=== PATIENT | male | born 1970 | race Caucasian/White ===

== ENCOUNTER 2017-11-09 11:02 | Inpatient (IN) | payer OTHER ==
--- NOTE | 2017-11-09 11:30 | PDOC ---
History of Present Illness - General Chief Complaint: Respiratory Stated Complaint: SOB Time Seen by Provider: 11/09/17 11:29 History Source: Patient Exam Limitations: No Limitations - History of Present Illness Initial Comments: 11/09/17 12:16 Chief complaint: Left rib pain Patient 46-year-old male who denies any medical issues, states he's a nonsmoker but stated he smoked a few days ago, who coughed on November 06 and since then has had left rib pain. Patient states that he's had chills, fever but did not take his temperature. Patient states that the pain is been constant. GENERAL/CONSTITUTIONAL: No fever, weakness. dizziness HEAD, EYES, EARS, NOSE AND THROAT: No change in vision. No ear pain or discharge. No sore throat. CARDIOVASCULAR: No chest pain RESPIRATORY: +shortness of breath or cough GASTROINTESTINAL: No pain, nausea, vomiting, diarrhea or constipation GENITOURINARY: No dysuria MUSCULOSKELETAL: No neck or back pain SKIN: No rash NEUROLOGIC: No headache, vertigo, loss of consciousness, or loss of sensation. GENERAL: The patient is awake, alert, and fully oriented, in no acute distress. HEAD: Normal with no signs of trauma. EYES: Pupils equal, round and reactive to light, sclera anicteric, conjunctiva clear. ENT: pharynx: no erythema, no exudate, uvula midline NECK: supple CHEST: Diminished with coughing and wheezing, left lower rib tenderness, rr ABD: soft, nontender EXTREMITIES: Normal range of motion, no edema. NEUROLOGICAL: Normal speech, normal gait. SKIN: Warm, Dry Past History - Past Medical History Allergies/Adverse Reactions: Allergies Allergy/AdvReac Type Severity Reaction Status Date / Time No Known Allergies Allergy Verified 11/09/17 11:09 Home Medications: Ambulatory Orders NK [No Known Home Medication] 11/09/17 COPD: No - Suicide/Smoking/Psychosocial Hx Smoking History: Current every day smoker Number of Cigarettes Smoked Daily: 3 Information on smoking cessation initiated: No Hx Alcohol Use: Yes (SOCIAL) Drug/Substance Use Hx: No Substance Use Type: None *Physical Exam - Vital Signs Last Vital Signs Temp Pulse Resp BP Pulse Ox 99.1 F 127 H 20 127/94 11/09/17 11:05 11/09/17 11:05 11/09/17 11:05 11/09/17 11:05 Heart Score/ECG Review - ECG Intrepretation Rhythm: Regular Rhythm Comment:: 11/09/17 14:24 sinus tachycardia at 121 ED Treatment Course - LABORATORY CBC & Chemistry Diagram: 11/09/17 11:50 11/09/17 11:50 - RADIOLOGY Chest X-Ray Result: Effusion (large left, ct pending) Medical Decision Making - Medical Decision Making 11/09/17 14:24 46-year-old male with cough, left rib pain, wheezing, found to have a large left pleural effusion, questionable fever, was found to be tachycardic, sepsis screening was sent. Patient was found to have a white count of 17,000, lactic of 1.1, slightly hypoxic although able to speak clearly and doesn't appear in acute distress. Patient started on Levaquin, CT chest ordered to further define what processes going on in the lung. Patient given fluids, flu swab sent. Patient will need admission, culture sent. *DC/Admit/Observation/Transfer Diagnosis at time of Disposition: Pleural effusion on left - Discharge Dispostion Condition at time of disposition: Fair Admit: Yes - Referrals - Patient Instructions - Post Discharge Activity
[2017-11-09] MEDS ORDERED: ALBUTEROL SO4 2.5/IPRATROPIUM 0.5 INH SOL 3 ML VIAL.NEB. NEB ONE ×2 (11:40→11:42)
[2017-11-09] MEDS ORDERED: SODIUM CHLORIDE 1,000 ML IV STA ×2 (11:40→14:06)
[2017-11-09 12:19] LABS: BASO % 0.3 % (0-2.0); EOS % 1.8 % (0-4.5); HEMATOCRIT 52.3 % (35.4-49); HEMOGLOBIN 17.4 GM/dL (11.7-16.9); LYMPH % 6.9 % (8-40); MCH 32.8 pg (25.7-33.7); MCHC 33.3 g/dl (32.0-35.9); MEAN CELL VOLUME 98.3 fl (80-96); MEAN PLT VOLUME 7.3 fl (7.5-11.1); MONO % 8.8 % (3.8-10.2); NEUT % 82.2 % (42.8-82.8); PLATELET COUNT 288 K/MM3 (134-434); RBC 5.32 M/mm3 (4.00-5.60); RDW 14.1 % (11.9-15.9); WHITE BLOOD COUNT 17.7 K/mm3 (4.0-10.0)
[2017-11-09 12:21] LABS: INR 1.23 (0.82-1.09); PROTHROMBIN TIME (PATIENT) 13.9 SEC (9.98-11.88)
[2017-11-09 12:23] LABS: ALBUMIN 3.5 g/dl (3.4-5.0); ANION GAP 8 (8-16); BILIRUBIN,TOTAL 1.5 mg/dL (0.2-1.0); BLOOD UREA NITROGEN 11 mg/dL (7-18); CALCIUM 8.9 mg/dL (8.5-10.1); CHLORIDE 106 mmol/L (98-107); CO2 23 mmol/L (21-32); CREATININE 0.9 mg/dL (0.7-1.3); GLUCOSE,RANDOM 114 mg/dL (74-106); SGPT/ALT 61 U/L (12-78); SODIUM 137 mmol/L (136-145)
[2017-11-09 12:24] LABS: ACTIVATED PTT 32.6 SECONDS (26.9-34.4); ALK PHOS 107 U/L (45-117)
[2017-11-09 12:29] LABS: POTASSIUM 4.3 mmol/L (3.5-5.1); SGOT/AST 25 U/L (15-37)
[2017-11-09] MEDS ORDERED: LEVOFLOXACIN 750 MG IVPB 750 MG/150 ML BAG IVPB ONE ×2 (12:34→12:46)
[2017-11-09] MEDS ORDERED: morphine SULFATE 4 MG/ML VIAL ONE (12:45)
[2017-11-09] MEDS ORDERED: morphine CARPU-JECT 4 MG/1 ML DISP.SYRIN IVPUSH ONE (12:47)
[2017-11-09] MEDS ORDERED: ACETAMINOPHEN 325 MG TABLET (FP) PO ONE (14:06)
[2017-11-09] MEDS ORDERED: ACETAMINOPHEN 325 MG TABLET (FP) ONE (14:24)
--- NOTE | 2017-11-09 17:08 | HP ---
CHIEF COMPLAINT: Left rib pain HISTORY OF PRESENT ILLNESS: 46yo M with no significant PMH presents with new onset Left rib pain. Pt reports that he coughed on Saturday (11/06/17), and has had this pain ever since. Pt denies ever having these symptoms before. Pain is severe, sharp, localized, non-radiating, and impacts ADLs. Pt cannot lie flat as this causes coughing, which induces the pain. Pt found to have large loculated pleural effusion on Chest CT in the ER. Pt received Morphine for pain in the ER, but pt still c/o pain. Pt denies sick contacts. ER course was notable for: (1) NS 1 L bolus x 2 (2) Levaquin 750mg IVPB (3) CBC reveals elevated WBCs, and H/H PAST MEDICAL HISTORY: none PAST SURGICAL HISTORY: rotator cuff repair Social History: Smokin ppd x 10 yrs, quit 1 yr ago, although smoked 3 cigarettes on Saturday when these symptoms began Alcohol: social, described as liquor on weekends Drugs: none Family History: "everyone in my family dies of heart disease" Allergies No Known Allergies Allergy (Verified 11/09/17 11:09) HOME MEDICATIONS: Home Medications Medication Instructions Recorded NK [No Known Home Medication] 11/09/17 REVIEW OF SYSTEMS CONSTITUTIONAL: subjective fever, chills Absent: diaphoresis, generalized weakness, malaise, loss of appetite, weight change HEENT: Absent: rhinorrhea, nasal congestion, throat pain, throat swelling, difficulty swallowing, mouth swelling, ear pain, eye pain, visual changes CARDIOVASCULAR: Left rib pain Absent: palpitations, irregular heart rate, lightheadedness, peripheral edema RESPIRATORY: cough Absent: shortness of breath, dyspnea with exertion, orthopnea, wheezing, stridor , hemoptysis GASTROINTESTINAL: Absent: abdominal pain, nausea, vomiting, diarrhea, constipation, melena, hematochezia GENITOURINARY: Absent: dysuria, hematuria MUSCULOSKELETAL: Absent: myalgia, arthralgia, joint swelling, back pain, neck pain SKIN: Absent: rash, itching, pallor HEMATOLOGIC/IMMUNOLOGIC: Absent: easy bleeding, easy bruising NEUROLOGIC: Absent: headache, focal weakness or paresthesias, dizziness PSYCHIATRIC: Absent: anxiety, depression PHYSICAL EXAMINATION Vital Signs - 24 hr 11/09/17 11/09/17 11/09/17 11:05 13:29 14:22 Temperature 99.1 F Pulse Rate 127 H Pulse Rate [ 121 H Apical] Respiratory 20 20 Rate Blood Pressure 127/94 Blood Pressure 128/87 [Left Arm] O2 Sat by Pulse 97 94 L Oximetry (%) 11/09/17 16:28 Temperature Pulse Rate Pulse Rate [ 117 H Apical] Respiratory 20 Rate Blood Pressure Blood Pressure 138/87 [Left Arm] O2 Sat by Pulse 94 L Oximetry (%) GENERAL: Awake, alert, and fully oriented, in no acute distress. HEAD: Normal with no signs of trauma. EARS, NOSE, THROAT: Moist mucous membranes. NECK: Supple without lymphadenopathy. LUNGS: Diminished breath sounds to Left lower lung, otherwise CTAB. No accessory muscle use. HEART: Regular rate and rhythm, normal S1 and S2 without murmur, rub or gallop. ABDOMEN: Soft, nontender, normoactive bowel sounds, no guarding, no masses. LOWER EXTREMITIES: Warm, well-perfused. No calf tenderness. No peripheral edema. NEUROLOGICAL: Cranial nerves II-XII grossly intact. Normal speech. PSYCHIATRIC: Cooperative. Good eye contact. Appropriate mood and affect. SKIN: Warm, dry, normal turgor, no rashes or lesions noted. Laboratory Results - last 24 hr 11/09/17 11/09/17 11/09/17 11:50 11:50 11:50 WBC 17.7 H RBC 5.32 Hgb 17.4 H Hct 52.3 H MCV 98.3 H MCH 32.8 MCHC 33.3 RDW 14.1 Plt Count 288 MPV 7.3 L Neutrophils % 82.2 Lymphocytes % 6.9 L Monocytes % 8.8 Eosinophils % 1.8 Basophils % 0.3 PT with INR 13.90 H INR 1.23 H PTT (Actin FS) 32.6 Sodium 137 Potassium 4.3 Chloride 106 Carbon Dioxide 23 Anion Gap 8 BUN 11 Creatinine 0.9 Creat Clearance w eGFR > 60 Random Glucose 114 H Lactic Acid Calcium 8.9 Total Bilirubin 1.5 H AST 25 ALT 61 Alkaline Phosphatase 107 Total Protein 8.0 Albumin 3.5 11/09/17 11:54 WBC RBC Hgb Hct MCV MCH MCHC RDW Plt Count MPV Neutrophils % Lymphocytes % Monocytes % Eosinophils % Basophils % PT with INR INR PTT (Actin FS) Sodium Potassium Chloride Carbon Dioxide Anion Gap BUN Creatinine Creat Clearance w eGFR Random Glucose Lactic Acid 1.1 Calcium Total Bilirubin AST ALT Alkaline Phosphatase Total Protein Albumin IMAGIN11/09/17 CXR -> Large Left pleural effusion with possibly some Left atelectasis or infiltrate 11/09/[address] -> (1) large Left pleural effusion with possible loculation and compressive atelectasis of nearly the entire Left lower lung, segmental atelectasis in the lingula and segmental atelectasis in the remainder of the Left lower lung. (2) Nonspecific 6mm pleural-based nodularity in the Right upper lung. F/u with Chest CT in 6-12 mo recommended. (3) Numerous nonspecific subcentimeter mediastinal lymph nodes. No pathologically enlarged mediastinal lymph nodes though. (4) Very small pericardial fluid whihc may be physiologic or race pericardial effusion. Moderate coronary artery calcific atherosclerosis predominantly along the Left Anterior Descending artery. (5) Hepatic steatosis. ASSESSMENT/PLAN: 46yo M with no significant PMH presents with new onset Left rib pain. # sepsis - tachycardia, leukocytosis, probable infection from lung source - start antibiotics: Ceftriaxone IVPB and Azithromycin IVPB - NS 1 L bolus x 2 received in the ER, hold additional IVFs for now - f/u blood cultures and sputum culture - f/u legionella - f/u Quanteferon Gold - f/u [id number] - will need thoracentesis to evaluation pleural fluid and r/o empyema - HIV (-) - Influenza A&B (-) # large loculated Left pleural effusion - could be parapneumonic vs empyema vs chronic - f/u [place] - f/u TSH - f/u Echo to assess pericardial effusion - Pulmonary Consult - will consult IR if needed to drain the pleural effusion - pain control with Percocet q4hr prn # lung nodule - f/u with Chest CT in 6-12 mo # FEN - Fluids: NS @ 75 ml/hr - Electrolytes: wnl, continue to monitor - Nutrition: regular diet # Prophylaxis - DVT ppx with Heparin TID Visit type - Emergency Visit Emergency Visit: Yes ED Registration Date: 11/09/17 Care time: The patient presented to the Emergency Department on the above date and was hospitalized for further evaluation of their emergent condition. - New Patient This patient is new to me today: Yes Date on this admission: 11/10/17 - Critical Care Critical Care patient: No
[2017-11-09] MEDS ORDERED: SODIUM CHLORIDE 1,000 ML IV SCH (17:30)
[2017-11-09 17:39] VITALS: BMI 33.3
[2017-11-09] MEDS ORDERED: FLU VACCINE QUAD 60 MCG/0.5 ML (MDV 17-18) IM ONE (19:00)
--- NOTE | 2017-11-09 19:12 | PN ---
Teaching Attending Note Name of Resident: Yanelis Frey ATTENDING PHYSICIAN STATEMENT I saw and evaluated the patient. I reviewed the resident's note and discussed the case with the resident. I agree with the resident's findings and plan as documented. SUBJECTIVE: CC: L sided cp HPI: 46 y/o gentleman with no significant PMH but smoking , who presented with L sided CP and cough . 3 days ago , he started coughing nad developed L sided pain laterally. this pain prevented him from sleep. he reported subjective fevers, no sputum production, has sweats and hot/cold flashes while in ER. reports SOB. He denied recent travel, sick contact, or exposure to TB. 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 No h/o STDs, no h/o Autoimmune diseases in his family. He smoked 1/2-1 pack daily x 20 yr and quit 6 months ago. OBJECTIVE: NAD, AAOx3 HEENT: MMM, no facial droop, no LAP. EOMI, round equal pupils reactive to light CV: RRR, no MRG , tachy 120s Lungs: decreased breath sounds at L base . otherwise clear Abd: soft,NT, ND , NL BS Ext: no edema . No joint edema or erythema . no joint tenderness in hands or feet. no knee effusion. Neuro ; strength 5/5 in upper and lower extremities , proximally and distally. reflexes 2+ biceps and 1+ knee jerk b/l . EOMI, round equal pupils reactive to light , no facial droop. EKG with NSR, sinus tahcy, NL axis , QTC 450 CT scan reviewed. ASSESSMENT AND PLAN: 46 y/o gentleman with no significant PMH but smoking , who presented with L sided CP and cough . He was found to have a large pleural effusion. 1- Sepsis: will L pleural effusion. source is likely PNA or infected pleural effusion hemodynamically stable but slightly tachy. Sat O2 93 on RA . - start Abx .will give ceftriaxone and azithro . - blood cx sent - send legionella Ag - check QTF gold - sputum cx - check A1c and HIV ( consented) - needs thoracentesis to evaluate cause of effusion , and r/o Empyema - received 2 Lf IVF in ER. will repeat blood work and determine on that 2- Large L pleural effusion , could be parapneumonic /empyema , or could be a chronic pleural effusion that got infected. does not have any sx of autoimmune disease. - check [place] - check TSH - check echo to evaluate pericardial effusion. No signs of tamponade. - need drainage of pericardial effusion. will consult IR , unless Pulmonary is able to drain in AM - pulm consult DVT PX : heparin sq
[2017-11-09] MEDS ORDERED: AZITHROMYCIN IVPB 500 MG in DEXTROSE 5%-WATER - 250 ML IVPB SCH (19:30)
[2017-11-09] MEDS: oxyCODONE HCL 5 MG TABLET PO PRN (20:03)
[2017-11-09] MEDS: ACETAMINOPHEN 325 MG TABLET (FP) PO PRN (20:04)
[2017-11-09 20:56] LABS: BASO % 0.5 % (0-2.0); EOS % 2.5 % (0-4.5); HEMATOCRIT 47.6 % (35.4-49); LYMPH % 8.7 % (8-40); MCH 33.2 pg (25.7-33.7); MCHC 33.7 g/dl (32.0-35.9); MEAN CELL VOLUME 98.5 fl (80-96); MEAN PLT VOLUME 7.6 fl (7.5-11.1); MONO % 7.6 % (3.8-10.2); NEUT % 80.7 % (42.8-82.8); PLATELET COUNT 249 K/MM3 (134-434); RBC 4.83 M/mm3 (4.00-5.60); RDW 13.9 % (11.9-15.9); WHITE BLOOD COUNT 13.4 K/mm3 (4.0-10.0)
[2017-11-10] MEDS: ACETAMINOPHEN 325 MG TABLET (FP) PO PRN ×3 (03:19→19:31)
[2017-11-10] MEDS: oxyCODONE HCL 5 MG TABLET PO PRN ×3 (03:27→19:33)
[2017-11-10] MEDS ORDERED: PT OWN MED DRAWER 7, Y5N ONE (09:01)
[2017-11-10 09:14] LABS: BASO % 0.4 % (0-2.0); EOS % 2.6 % (0-4.5); HEMATOCRIT 48.5 % (35.4-49); HEMOGLOBIN 16.2 GM/dL (11.7-16.9); MCH 33.1 pg (25.7-33.7); MCHC 33.4 g/dl (32.0-35.9); MEAN CELL VOLUME 99.1 fl (80-96); MEAN PLT VOLUME 7.8 fl (7.5-11.1); MONO % 8.2 % (3.8-10.2); NEUT % 78.8 % (42.8-82.8); PLATELET COUNT 260 K/MM3 (134-434); RBC 4.89 M/mm3 (4.00-5.60); RDW 14.1 % (11.9-15.9); WHITE BLOOD COUNT 14.8 K/mm3 (4.0-10.0)
[2017-11-10 09:26] LABS: ALBUMIN 2.8 g/dl (3.4-5.0); ANION GAP 12 (8-16); BLOOD UREA NITROGEN 9 mg/dL (7-18); CALCIUM 8.4 mg/dL (8.5-10.1); CHLORIDE 101 mmol/L (98-107); CO2 23 mmol/L (21-32); CREATININE 0.7 mg/dL (0.7-1.3); GLUCOSE,RANDOM 84 mg/dL (74-106); INR 1.29 (0.82-1.09); POTASSIUM 4.3 mmol/L (3.5-5.1); PROTHROMBIN TIME (PATIENT) 14.6 SEC (9.98-11.88); SGOT/AST 34 U/L (15-37); SGPT/ALT 75 U/L (12-78); SODIUM 136 mmol/L (136-145)
[2017-11-10 09:36] LABS: ALK PHOS 110 U/L (45-117); BILIRUBIN,TOTAL 1.8 mg/dL (0.2-1.0); TOT PROT 6.9 g/dl (6.4-8.2)
[2017-11-10] MEDS ORDERED: morphine CARPU-JECT 2 MG/1 ML DISP.SYRIN IVPUSH PRN (11:11)
[2017-11-10] MEDS: AZITHROMYCIN IVPB 500 MG in DEXTROSE 5%-WATER - 250 ML IVPB SCH (13:35)
[2017-11-10] MEDS: CEFTRIAXONE 1 G/50 ML PREMIX 50 ML IVPB SCH (13:35)
--- NOTE | 2017-11-10 14:09 | CON.PULM ---
Consult Consult Specialty:: PULMONARY Referred by:: RAYMOND Reason for Consultation:: PLEURAL EFFUSION - History of Present Illness Chief Complaint: LEFT SIDED CHEST PAIN/SOB/FEVER FOR 5 DAYS History of Present Illness: Patient 46-year-old male who denies any medical issues, states he's a nonsmoker but stated he smoked a few days ago, who coughed on November 06 and since then has had left rib pain. Patient states that he's had chills, fever but did not take his temperature. Patient states that the pain is been constant. He admits to falling on left side injuring ribs while putting up a [place] tree. - History Source History Provided By: Patient, Medical Record Limitations to Obtaining History: No Limitations - Past Medical History EQUIPMENT SCHEDULER: No: Alzheimer's Cardio/Vascular: No: AFIB Pulmonary: No: Asthma Gastrointestinal: No: Ascites Hepatobiliary: No: Cirrhosis Renal/: No: Renal Failure Heme/Onc: No: Anemia Infectious Disease: No: AIDS Psych: No: Addictions Musculoskeletal: No: Bursitis Rheumatology: No: Fibromyalgia Endocrine: No: Diabetes Mellitus - Alcohol/Substance Use Hx Alcohol Use: Yes (Social) - Smoking History Smoking history: Former smoker Have you smoked in the past 12 months: No Aproximately how many cigarettes per day: 3 If you are a former smoker, when did you quit?: A year ago Home Medications - Allergies Allergies/Adverse Reactions: Allergies Allergy/AdvReac Type Severity Reaction Status Date / Time No Known Allergies Allergy Verified 11/09/17 11:09 - Home Medications Home Medications: Ambulatory Orders NK [No Known Home Medication] 11/09/17 Family Disease History - Family Disease History Family History: Unremarkable Review of Systems - Review of Systems Constitutional: reports: Chills, Fever, Lethargy, Loss of Appetite Eyes: denies: Blurred Vision HENT: denies: Difficult Swallowing Neck: denies: Decreased ROM Cardiovascular: reports: Chest Pain Respiratory: reports: Cough, Exercise Intolerance, SOB, SOB on Exertion. denies : Hemoptysis Gastrointestinal: denies: Abdominal Pain Genitourinary: reports: No Symptoms Breasts: reports: No Symptoms Reported Musculoskeletal: reports: No Symptoms Integumentary: reports: No Symptoms Neurological: reports: No Symptoms Endocrine: reports: No Symptoms Physical Exam Vital Sings: Vital Signs Temperature 97.6 F 11/10/17 08:33 Pulse Rate 126 H 11/10/17 08:33 Respiratory Rate 20 11/10/17 08:44 Blood Pressure 134/90 11/10/17 08:33 O2 Sat by Pulse Oximetry (%) 96 11/10/17 08:44 Constitutional: Yes: Calm Eyes: Yes: EOM Intact HENT: Yes: Normocephalic Neck: Yes: Trachea Midline Cardiovascular: Yes: Regular Rate and Rhythm Respiratory: Yes: Dullness (left side) Gastrointestinal: Yes: Normal Bowel Sounds, Abdomen, Obese Edema: No Neurological: Yes: WNL ...Motor Strength: WNL Psychiatric: Yes: WNL Labs: CBC, BMP 11/10/17 07:00 11/10/17 07:00 rest reviewed Imaging - Results Chest X-ray: Report Reviewed, Image Reviewed Cat Scan: Report Reviewed, Image Reviewed Problem List - Problems (1) Pleural effusion on left Code(s): J90 - PLEURAL EFFUSION, NOT ELSEWHERE CLASSIFIED (2) Low back pain Code(s): M54.5 - LOW BACK PAIN Assessment/Plan LARGE EFFUSION/LEFT SIDE NO SIGNIFICANT PMH H/O TRAUMA TO LEFT SIDE NEEDS THORACENTESIS R/O COMPLICATED PARAPNEUMONIC EFFUSION VS HEMOTHORAX(LESS LIKELY) CONTINU ANTIBIOTICS/O2/ANALGESIA GIVEN SIZE OF EFUSION WILL LIKELY REQUIRE DRAINAGE Nitin FRIEDMAN MD
[2017-11-10] MEDS: morphine SULFATE 4 MG/ML VIAL IVPUSH PRN (14:26)
--- NOTE | 2017-11-10 16:49 | PN ---
Progress Note (short form) - Note Progress Note: Subjective: no fever or chills , has L sided cp . has improved SOB Objective: Vital Signs: Last Vital Signs Temp Pulse Resp BP Pulse Ox 97.6 F 126 H 20 134/90 96 11/10/17 08:33 11/10/17 08:33 11/10/17 08:44 11/10/17 08:33 11/10/17 08:44 I&O: Laboratory Results - last 24 hr 11/09/17 11/09/17 11/09/17 20:26 20:26 20:55 WBC 13.4 H RBC 4.83 Hgb 16.0 Hct 47.6 MCV 98.5 H MCH 33.2 MCHC 33.7 RDW 13.9 Plt Count 249 MPV 7.6 Neutrophils % 80.7 Lymphocytes % 8.7 D Monocytes % 7.6 Eosinophils % 2.5 Basophils % 0.5 PT with INR INR Sodium Potassium Chloride Carbon Dioxide Anion Gap BUN Creatinine Creat Clearance w eGFR Random Glucose Hemoglobin A1c % Calcium Total Bilirubin AST ALT Alkaline Phosphatase C-Reactive Protein 27.1 H Total Protein Albumin TSH HIV 1&2 Antibody Screen Negative HIV P24 Antigen Negative 11/10/17 11/10/17 11/10/17 07:00 07:00 07:00 WBC 14.8 H RBC 4.89 Hgb 16.2 Hct 48.5 MCV 99.1 H MCH 33.1 MCHC 33.4 RDW 14.1 Plt Count 260 MPV 7.8 Neutrophils % 78.8 Lymphocytes % 10.0 Monocytes % 8.2 Eosinophils % 2.6 Basophils % 0.4 PT with INR 14.60 H INR 1.29 H Sodium 136 Potassium 4.3 Chloride 101 Carbon Dioxide 23 Anion Gap 12 BUN 9 Creatinine 0.7 D Creat Clearance w eGFR > 60 Random Glucose 84 D Hemoglobin A1c % Calcium 8.4 L Total Bilirubin 1.8 H AST 34 D ALT 75 D Alkaline Phosphatase 110 C-Reactive Protein Total Protein 6.9 Albumin 2.8 L TSH 2.92 HIV 1&2 Antibody Screen HIV P24 Antigen 11/10/17 07:00 WBC RBC Hgb Hct MCV MCH MCHC RDW Plt Count MPV Neutrophils % Lymphocytes % Monocytes % Eosinophils % Basophils % PT with INR INR Sodium Potassium Chloride Carbon Dioxide Anion Gap BUN Creatinine Creat Clearance w eGFR Random Glucose Hemoglobin A1c % 5.7 Calcium Total Bilirubin AST ALT Alkaline Phosphatase C-Reactive Protein Total Protein Albumin TSH HIV 1&2 Antibody Screen HIV P24 Antigen Physical Exam: NAD, AAOx3 HEENT: MMM, no facial droop, no LAP. CV: RRR, no MRG , tahcy Lungs: decreased breath sounds at L base . otherwise clear Abd: soft,NT, ND , NL BS Ext: no edema . No joint edema or erythema . no joint tenderness in hands or feet. no knee effusion. ASSESSMENT AND PLAN: 46 y/o gentleman with no significant PMH but smoking , who presented with L sided CP and cough . He was found to have a large pleural effusion. 1- Sepsis: will L pleural effusion. source is likely PNA or infected pleural effusion -cont ceftriaxone and azithro . - follow blood cx - legionella Ag pending - QTF gold pending - sputum cx - HIV pending - needs thoracentesis to evaluate cause of effusion , and r/o Empyema . IR consult 2- Large L pleural effusion , could be parapneumonic /empyema , or could be a chronic pleural effusion that got infected. does not have any sx of autoimmune disease. - [place] pending - check echo to evaluate pericardial effusion. No signs of tamponade. -IR consult DVT PX : heparin sq Visit type - Emergency Visit Emergency Visit: Yes ED Registration Date: 11/09/17 Care time: The patient presented to the Emergency Department on the above date and was hospitalized for further evaluation of their emergent condition. - New Patient This patient is new to me today: No - Critical Care Critical Care patient: No
[2017-11-11] MEDS: morphine SULFATE 4 MG/ML VIAL IVPUSH PRN ×3 (01:04→14:12)
[2017-11-11 08:03] LABS: BASO % 0.4 % (0-2.0); EOS % 1.4 % (0-4.5); HEMATOCRIT 49.3 % (35.4-49); HEMOGLOBIN 16.3 GM/dL (11.7-16.9); LYMPH % 7.9 % (8-40); MCH 32.9 pg (25.7-33.7); MEAN CELL VOLUME 99.8 fl (80-96); MEAN PLT VOLUME 7.7 fl (7.5-11.1); MONO % 11.9 % (3.8-10.2); NEUT % 78.4 % (42.8-82.8); PLATELET COUNT 292 K/MM3 (134-434); RBC 4.94 M/mm3 (4.00-5.60); WHITE BLOOD COUNT 14.7 K/mm3 (4.0-10.0)
[2017-11-11 08:34] LABS: ALBUMIN 2.9 g/dl (3.4-5.0); BILIRUBIN,DIRECT 0.6 mg/dL (0.0-0.2); BILIRUBIN,TOTAL 1.2 mg/dL (0.2-1.0); TOT PROT 7.5 g/dl (6.4-8.2)
[2017-11-11] MEDS: ACETAMINOPHEN 325 MG TABLET (FP) PO PRN ×3 (08:42→22:42)
[2017-11-11] MEDS: oxyCODONE HCL 5 MG TABLET PO PRN ×3 (08:43→22:43)
[2017-11-11] MEDS: CEFTRIAXONE 1 G/50 ML PREMIX 50 ML IVPB SCH (10:07)
--- NOTE | 2017-11-11 11:34 | PN ---
Progress Note, Physician History of Present Illness: PULMONARY ALERT,+DYSPNEA WITH EXERTION. CHEST CT LARGE LOCULATED LEFT PLEURAL EFFUSION - Current Medication List Current Medications: Active Medications Acetaminophen (Tylenol -) 325 mg PO Q4H PRN PRN Reason: PAIN Stop: 11/12/17 17:29 Last Admin: 11/11/17 08:42 Dose: 325 mg CEFTRIAXONE 1 G/50 ML PREMIX (Ceftriaxone 1 Gm-D5w Bag) 50 mls @ 100 mls/hr IVPB DAILY TELLO Last Admin: 11/11/17 10:07 Dose: 100 mls/hr Azithromycin 500 mg/ Dextrose 250 mls @ 250 mls/hr IVPB Q24H TELLO Last Admin: 11/10/17 13:35 Dose: 250 mls/hr Morphine Sulfate (Morphine Sulfate) 2 mg IVPUSH Q4H PRN PRN Reason: PAIN Last Admin: 11/11/17 05:52 Dose: 2 mg Oxycodone HCl (Roxicodone -) 5 mg PO Q4H PRN PRN Reason: PAIN Last Admin: 11/11/17 08:43 Dose: 5 mg - Objective Vital Signs: Vital Signs Temperature 98.2 F 11/11/17 08:05 Pulse Rate 122 H 11/11/17 08:05 Respiratory Rate 18 11/11/17 08:05 Blood Pressure 124/92 11/11/17 08:05 O2 Sat by Pulse Oximetry (%) 94 L 11/10/17 21:46 Constitutional: Yes: Well Nourished, Calm Eyes: Yes: WNL HENT: Yes: WNL Neck: Yes: WNL Cardiovascular: Yes: Regular Rate and Rhythm, S1, S2 Respiratory: Yes: Diminished (DIMONISHED BS ON LEFT) Gastrointestinal: Yes: Normal Bowel Sounds, Soft Extremities: Yes: WNL Edema: No Labs: CBC, BMP 11/11/17 06:00 11/10/17 07:00 INR, PTT INR 1.29 (0.82-1.09) H 11/10/17 07:00 - ....Imaging Cat Scan: Report Reviewed, Image Reviewed Assessment/Plan Problem List - Problems (1) Pleural effusion on left Code(s): J90 - PLEURAL EFFUSION, NOT ELSEWHERE CLASSIFIED (2) Low back pain Code(s): M54.5 - LOW BACK PAIN Assessment/Plan LARGE LOCULATED LEFT PLEURAL EFFUSION ? COMPLICATED PARAPNEUMONIC,? HEMOTHORAX, ? MALIGNANT H/O TRAUMA TO LEFT SIDE CHEST TUBE INSERTION THORACIC SURGERY EVALUATION CONTINUE ANTIBIOTICS O2 ANALGESIA DR STEELE
--- NOTE | 2017-11-11 14:00 | CONSULT ---
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 ?trauma while putting up [place] tree. No weight loss or hemoptysis. OTW healthy. No sick contacts. Imaging shows loculated effusion. AF WBC elevated. Drain placed. Serous fluid. Imp/Plan: Early empyema -F/U fluid studies -Repeat CXR in AM, if not substantially improved, will do VATS -NPO p MN -Risk/benefits of VATS discussed with patient and his mother. I have spent 40minutes with >50% in counseling and coordination of care with patient, Dr. Hernandes, Dr. Morgan, and Dr. Lopez.
[2017-11-11] MEDS: AZITHROMYCIN IVPB 500 MG in DEXTROSE 5%-WATER - 250 ML IVPB SCH (14:17)
[2017-11-11 15:28] LABS: GLUCOSE,PLEURAL FLUID 28.665
[2017-11-11 15:49] LABS: PLEURAL FLUID APPEARANCE CLOUDY; PLEURAL FLUID COLOR YELLOW
[2017-11-11 15:50] LABS: PLEURAL FLUID RBC 1293 /mm3
--- NOTE | 2017-11-11 18:30 | PN ---
Teaching Attending Note Name of Resident: Arnaud Wick ATTENDING PHYSICIAN STATEMENT I saw and evaluated the patient. I reviewed the resident's note and discussed the case with the resident. I agree with the resident's findings and plan as documented. SUBJECTIVE: No fever or chills. cont to have SOB and CP OBJECTIVE: NAD, AAOx3 HEENT: MMM, no facial droop, no LAP. CV: RRR, no MRG , tahcy Lungs: decreased breath sounds at L lung field otherwise clear R lung Abd: soft,NT, ND , NL BS Ext: no edema . ASSESSMENT AND PLAN: 46 y/o gentleman with no significant PMH but smoking , who presented with L sided CP and cough . He was found to have a large pleural effusion. 1- Sepsis: with L pleural effusion. thoracentesis shows exudative fluid , with cloudy appearance and 2600 WBC. probably parapneumonic---> empyema - s/p drainage , > 1 L of fluid drained. - repeat cxray in AM. - if needed VATS can be done - follow fluid cx and send for cytology - cont abx day 3 2- Small pericardial effusion : echo pending [place] pending 3- sinus tahcycardia : has tahcycardia at base line pain and SOB are contributing. looks euvolemic now. dc IVF DVT PX : heparin sq
--- NOTE | 2017-11-11 19:13 | PN ---
Physical Exam: SUBJECTIVE: Patient seen and examined. Pt states that left-sided chest pain is worse than yesterday. He states that SOB is same as before. He denies other symptoms. OBJECTIVE: Vital Signs Period Temp Pulse Resp BP Sys/Jimenez Pulse Ox Last 24 Hr 98.0 F-99.1 F 111-122 18-20 124-146/79-98 93-95 GENERAL: middle-aged male, standing up, AAOx3, in NAD HEENT: NC, AT NECK: Trachea midline, full range of motion, supple. LUNGS: no left-sided breath sounds HEART: tachycardic, L-sided rib tenderness ABDOMEN: Soft, nontender, nondistended, normoactive bowel sounds, no guarding, no rebound, no hepatosplenomegaly, no masses. EXTREMITIES: 1+ b/l LE edema NEUROLOGICAL: Cranial nerves II through XII grossly intact. Normal speech, gait not observed. Laboratory Results - last 24 hr 11/09/17 11/11/17 11/11/17 20:26 06:00 06:00 WBC 14.7 H RBC 4.94 Hgb 16.3 Hct 49.3 H MCV 99.8 H MCH 32.9 MCHC 33.0 RDW 14.0 Plt Count 292 MPV 7.7 Neutrophils % 78.4 Lymphocytes % 7.9 L D Monocytes % 11.9 H Eosinophils % 1.4 Basophils % 0.4 Total Bilirubin 1.2 H D Direct Bilirubin 0.6 H AST 15 D ALT 51 D Alkaline Phosphatase 102 Total Protein 7.5 Albumin 2.9 L Pleural Fluid Source Pleural Color Pleural Appearance Pleural WBC Pleural RBC Pleural Albumin Pleural LDH Pleural Glucose Pleural Amylase Pleural Triglycerides HIV 1&2 Ag/Ab, 4th Gen Non reactive 11/11/17 13:00 WBC RBC Hgb Hct MCV MCH MCHC RDW Plt Count MPV Neutrophils % Lymphocytes % Monocytes % Eosinophils % Basophils % Total Bilirubin Direct Bilirubin AST ALT Alkaline Phosphatase Total Protein Albumin Pleural Fluid Source Pleural Pleural Color Yellow Pleural Appearance Cloudy Pleural WBC 2674 Pleural RBC 1293 Pleural Albumin 3 Pleural LDH 483 Pleural Glucose 28.665 Pleural Amylase 19.793 Pleural Triglycerides 126 HIV 1&2 Ag/Ab, 4th Gen Active Medications Generic Name Dose Route Start Last Admin Trade Name Freq PRN Reason Stop Dose Admin Acetaminophen 325 mg 11/09/17 17:30 11/11/17 18:10 Tylenol - PO 11/12/17 17:29 325 mg Q4H PRN Administration PAIN Enoxaparin Sodium 40 mg 11/12/17 10:00 Lovenox - SQ DAILY TELLO CEFTRIAXONE 1 G/50 ML PREMIX 50 mls @ 100 mls/hr 11/10/17 14:00 11/11/17 10: 07 Ceftriaxone 1 Gm-D5w Bag IVPB 100 mls/hr DAILY TELLO Administration Azithromycin 500 mg/ Dextrose 250 mls @ 250 mls/hr 11/10/17 14:00 11/11/17 14 :17 IVPB 250 mls/hr Q24H TELLO Administration Morphine Sulfate 2 mg 11/10/17 14:05 11/11/17 14:12 Morphine Sulfate IVPUSH 2 mg Q4H PRN Administration PAIN Oxycodone HCl 5 mg 11/10/17 11:12 11/11/17 18:09 Roxicodone - PO 5 mg Q4H PRN Administration PAIN ASSESSMENT/PLAN: 46M w/ no significant PMH who presented with L sided CP and cough, found to have a large left-sided pleural effusion. #Sepsis with L pleural effusion - thoracentesis shows exudative fluid, with cloudy appearance and 2600 WBC. parapneumonic more likely than empyema - s/p drainage, more than 1 L of fluid drained - r/u repeat CXR - if needed, VATS can be done - f/u pleural fluid labs and cultures - cont abx, day 3 - pain control with morphine and percocet #Small pericardial effusion -f/u echo -f/u [place] #sinus tachycardia -has tachycardia at baseline -pain and SOB are contributing. -looks euvolemic now. dc IVF #FEN/ppx -no fluids -no electrolyte labs today -NPO after midnight -no GI ppx -lovenox -Arnaud Wick MD PGY1 Visit type - Emergency Visit Emergency Visit: Yes ED Registration Date: 11/09/17 Care time: The patient presented to the Emergency Department on the above date and was hospitalized for further evaluation of their emergent condition. - New Patient This patient is new to me today: Yes Date on this admission: 11/12/17 - Critical Care Critical Care patient: No
[2017-11-11 21:21] LABS: PLEURAL FLUID LYMPHOCYTES 10 %; PLEURAL FLUID NEUTROPHIL 84 %
[2017-11-11 21:22] LABS: PLEURAL FLD EOSINOPHIL 3 %; PLEURAL FLUID MACROPHAGES 1 %; PLEURAL FLUID MONOCYTE 2 %
--- NOTE | 2017-11-12 01:41 | EKG ---
Test Reason : Blood Pressure : / mmHG Vent. Rate : 121 BPM Atrial Rate : 121 BPM P-R Int : 142 ms QRS Dur : 072 ms QT Int : 318 ms P-R-T Axes : 052 003 017 degrees QTc Int : 451 ms SINUS TACHYCARDIA POSSIBLE LEFT ATRIAL ENLARGEMENT CANNOT RULE OUT INFERIOR INFARCT , AGE UNDETERMINED ABNORMAL ECG NO PREVIOUS ECGS AVAILABLE Confirmed by TEE COLLINS MD ([id number]) on 11/12/2017 1:41:11 AM Referred By: Confirmed By:TEE COLLINS MD
[2017-11-12] MEDS: oxyCODONE HCL 5 MG TABLET PO PRN (06:12)
[2017-11-12] MEDS: ACETAMINOPHEN 325 MG TABLET (FP) PO PRN (06:12)
[2017-11-12 07:25] LABS: BASO % 0.5 % (0-2.0); EOS % 2.4 % (0-4.5); LYMPH % 9.9 % (8-40); MCHC 33.3 g/dl (32.0-35.9); MEAN CELL VOLUME 99.1 fl (80-96); MEAN PLT VOLUME 7.6 fl (7.5-11.1); MONO % 12.2 % (3.8-10.2); PLATELET COUNT 286 K/MM3 (134-434); RBC 4.54 M/mm3 (4.00-5.60); WHITE BLOOD COUNT 11.2 K/mm3 (4.0-10.0)
[2017-11-12 07:33] LABS: ALBUMIN 2.6 g/dl (3.4-5.0); ANION GAP 9 (8-16); CALCIUM 8.7 mg/dL (8.5-10.1); CHLORIDE 95 mmol/L (98-107); CO2 30 mmol/L (21-32); SODIUM 134 mmol/L (136-145)
[2017-11-12 07:38] LABS: ALK PHOS 92 U/L (45-117); BILIRUBIN,TOTAL 1.1 mg/dL (0.2-1.0); BLOOD UREA NITROGEN 13 mg/dL (7-18); CREATININE 0.8 mg/dL (0.7-1.3); GLUCOSE,RANDOM 89 mg/dL (74-106); SGOT/AST 26 U/L (15-37); SGPT/ALT 44 U/L (12-78); TOT PROT 6.9 g/dl (6.4-8.2)
[2017-11-12] MEDS: CEFTRIAXONE 1 G/50 ML PREMIX 50 ML IVPB SCH (09:48)
[2017-11-12] MEDS ORDERED: ENOXAPARIN NA (PORCINE) 40 MG/0.4 ML DISP.SYRIN SQ SCH (10:00)
--- NOTE | 2017-11-12 10:30 | PN ---
Progress Note, Physician History of Present Illness: pulmonary alert,nad,s/p chest tube insertion with removal approx 2liters pleural fluid. pleural fluid c/w exudate likely complicated parapneumonic effusion glucose 28.No PH obtained - Current Medication List Current Medications: Active Medications Acetaminophen (Tylenol -) 325 mg PO Q4H PRN PRN Reason: PAIN Stop: 11/12/17 17:29 Last Admin: 11/12/17 06:12 Dose: 325 mg CEFTRIAXONE 1 G/50 ML PREMIX (Ceftriaxone 1 Gm-D5w Bag) 50 mls @ 100 mls/hr IVPB DAILY [facility] Last Admin: 11/12/17 09:48 Dose: 100 mls/hr Azithromycin 500 mg/ Dextrose 250 mls @ 250 mls/hr IVPB Q24H [facility] Last Admin: 11/11/17 14:17 Dose: 250 mls/hr Morphine Sulfate (Morphine Sulfate) 2 mg IVPUSH Q4H PRN PRN Reason: PAIN Last Admin: 11/11/17 14:12 Dose: 2 mg Oxycodone HCl (Roxicodone -) 5 mg PO Q4H PRN PRN Reason: PAIN Last Admin: 11/12/17 06:12 Dose: 5 mg - Objective Vital Signs: Vital Signs Temperature 98.2 F 11/12/17 08:05 Pulse Rate 96 H 11/12/17 08:05 Respiratory Rate 18 11/12/17 08:05 Blood Pressure 146/78 11/12/17 08:05 O2 Sat by Pulse Oximetry (%) 95 11/12/17 06:00 Constitutional: Yes: Well Nourished, Calm Eyes: Yes: WNL HENT: Yes: WNL Neck: Yes: WNL Cardiovascular: Yes: Regular Rate and Rhythm, S1, S2 Respiratory: Yes: Diminished (diminished bs left 1/3 up) Gastrointestinal: Yes: Normal Bowel Sounds, Soft Extremities: Yes: WNL Edema: No Labs: CBC, BMP 11/12/17 05:05 11/12/17 05:05 INR, PTT INR 1.29 (0.82-1.09) H 11/10/17 07:00 Laboratory Tests 11/11/17 11/11/17 13:00 Unknown Pleural Fluid Source Pleural Pleural Appearance Cloudy Pleural WBC 2674 Pleural RBC 1293 Pleural Neutrophils 84 Pleural Lymphocytes 10 Pleural Monocytes 2 Pleural Eosinophils 3 Pleural Macrophages 1 Pleural Total Protein 5.854 Pleural Albumin 3 Pleural LDH 483 Pleural Glucose 28.665 Pleural Amylase 19.793 Pleural Triglycerides 126 Assessment/Plan Problem List - Problems (1) Pleural effusion on left Code(s): J90 - PLEURAL EFFUSION, NOT ELSEWHERE CLASSIFIED (2) Low back pain Code(s): M54.5 - LOW BACK PAIN Assessment/Plan LARGE LOCULATED LEFT PLEURAL EFFUSION LIKELY COMPLICATED PARAPNEUMONIC, H/O TRAUMA TO LEFT SIDE F/U CHEST X-RAY MAY REQUIRE VAT CONTINUE ANTIBIOTICS CHECK CYTOLOGY O2 ANALGESIA DR STEELE
[2017-11-12] MEDS ORDERED: fentaNYL CITRATE 250 MCG/5 ML VIAL ONE (12:51)
[2017-11-12] MEDS ORDERED: PROPOFOL 20 ML ONE ×4 (12:51→14:03)
[2017-11-12] MEDS ORDERED: MIDAZOLAM HCL 2 MG/2 ML SINGLE DOSE VIAL ONE ×2 (12:51)
[2017-11-12] MEDS ORDERED: ROCURONIUM BROMIDE 50 MG/5 ML VIAL ONE ×2 (12:51→14:02)
[2017-11-12] MEDS ORDERED: SUCCINYLCHOLINE CHLORIDE 200 MG/10 ML VIAL ONE (12:51)
[2017-11-12] MEDS ORDERED: BUPIVACAINE HCL/PF 0.25% (2.5MG/ML) 10 ML VIAL ONE (13:17)
[2017-11-12] MEDS ORDERED: LIDOCAINE 1%/EPI 1:100000 (20 ML MULTI DOSE VIAL) ONE (13:17)
[2017-11-12] MEDS: AZITHROMYCIN IVPB 500 MG in DEXTROSE 5%-WATER - 250 ML IVPB SCH (14:17)
[2017-11-12] MEDS ORDERED: ceFAZolin SODIUM 1 GM VIAL IVPB ONE (14:30)
[2017-11-12] MEDS ORDERED: ONDANSETRON 4 MG/2 ML VIAL ONE ×2 (14:32→15:22)
[2017-11-12] MEDS ORDERED: ceFAZolin SODIUM 1 GM VIAL ONE (14:32)
[2017-11-12] MEDS ORDERED: BUPIVACAINE HCL/PF 0.25% (2.5MG/ML) 10 ML VIAL IJ ONE (15:16)
[2017-11-12] MEDS ORDERED: LIDOCAINE 1%/EPI 1:100000 (50 ML MULTI DOSE VIAL) INF ONE (15:16)
[2017-11-12] MEDS ORDERED: DEXAMETHASONE SOD PHOSPHATE 4 MG/1 ML VIAL ONE (15:22)
[2017-11-12] MEDS ORDERED: NEOSTIGMINE METHYLSULFATE 0.5 MG/ML - 10 ML MDV ONE (15:23)
[2017-11-12] MEDS ORDERED: IPRATROPIUM BR 0.02% 0.5 MG/2.5 ML VIAL.NEB. NEB STA (16:33)
[2017-11-12] MEDS ORDERED: ONDANSETRON 4 MG/2 ML VIAL IVPUSH PRN (16:34)
[2017-11-12] MEDS ORDERED: SODIUM CHLORIDE 1,000 ML IV SCH (16:45)
[2017-11-12] MEDS ORDERED: HYDROmorphone *PCA* 10MG/50ML DISP.SYRIN PCA SCH (16:45)
[2017-11-12] MEDS ORDERED: LACTATED RINGERS SOLUTION 1,000 ML IV SCH (16:45)
[2017-11-12] MEDS ORDERED: ACETAMINOPHEN 325 MG TABLET (FP) PO PRN (16:48)
--- NOTE | 2017-11-12 16:48 | OPR ---
Patient Name: Sammy Lassiter MR#: [id number] Procedure Date: 11/12/17 Preoperative Diagnosis: Left empyema Postoperative Diagnosis: Same Procedure: Flexible bronchoscopy, left thoracoscopy, pneumolysis, partial decortication, drainage of effusion Indication: as above Surgeon(s): Dr. Naveen Paris Tarper: Molly Faustin Anesthesia: General Endotracheal Wound Classification: Clean Antibiotic Prophylaxis: n/a Findings: Bronchoscopy with purulent sputum in left lower lobe; multiple pockets of fluid with significant fibrinous exudate near the lower lobe; minimal peel necessitating decortication; consolidated lingula and lower lobe; all adhesions of lingula to mediastinum released; ~500cc of pleural fluid drained. Specimens Sent: BAL cultures; pleural fluid cultures; pleural tissue for culture and pathology. Complications: none Drains / Tubes / Catheters: 2 chest tubes Hardware / Implants: n/a Blood / Fluid Losses: 100cc Blood / Fluids Administered: per anesthesia Post-Operative Condition: stable, extubated to PACU Indications: This patient is a 46 year-old male former smoker who presented with left pleuritic chest pain and cough. A drain was placed but his lung did not expand. For this reason, he was explained the risks, benefits, and alternatives of a bronchoscopy, vats, and thoracoscopy, and he agreed and understood. Details of Procedure: The patient was taken into the operating room and placed supine on the table. He was monitored with pulse oximetry and blood pressure monitoring. Sequential compression devices were placed. Subcutaneous heparin was given on the floor. A brooks catheter was placed. He was given sedation and intubated with a single-lumen tube. I performed a bronchoscopy. There was no blood in the airway. We sent cultures. A alysia was then placed. He was then positioned in the right lateral decubitus postion and the position of the tube was reconfirmed. His chest was prepared and draped in sterile fashion. We made 2 ports after giving local anesthesia. We performed pneumolysis and drained multiple loculated pockets. There were significant adhesions from the lower lobe to the diaphragm and from the lingula to the mediastinum. There were also adhesions of the left lung to the posterior mediastinum. All of these were lysed. We drained all fluid pockets. A partial decortication was performed on the lower lobe. Multiple cultures were sent. We then placed 2 chest tubes and expanded the lung after ensuring good hemostasis. The lower lobe expanded adequately, limited by the consolidative pneumonia. The chest tubes were secured and the ports were closed with absorbable sutures and dawna. Sterile dressings were placed. The patient was transferred extubated to the PACU. He tolerated the procedure well and was taken to the PACU in hemodynamically stable condition.
[2017-11-12] MEDS ORDERED: HYDROmorphone *PCA* 10MG/50ML DISP.SYRIN PCA ONE (16:50)
--- NOTE | 2017-11-12 16:55 | SURG ---
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 For further detail, please refer to operative report. <Molly Faustin - Last Filed: 11/12/17 16:52> Procedure: pneumolysis, drainage of empyema, and intercostal nerve block. I was present for the entirety of the operative procedure. For further detail, please refer to operative report. <Naveen Paris - Last Filed: 11/13/17 09:59> Visit type - Case Type Case Type: ED Admission - Emergency Emergency Visit: Yes ED Registration Date: 11/09/17 Care time: The patient presented to the Emergency Department on the above date and was hospitalized for further evaluation of their emergent condition. - New patient This patient is new to me today: Yes Date on this admission: 11/12/17 <Molly Faustin - Last Filed: 11/12/17 16:52>
[2017-11-12] MEDS ORDERED: ARTIFICIAL TEARS (POLYVINYL ALCOHOL 1.4%) OPTH DROPS OU PRN (18:49)
--- NOTE | 2017-11-12 19:11 | CONSULT ---
Consultation: REQUESTING PROVIDER: CONSULT REQUEST: We have been asked to medically evaluate and manage this patient s/p chest tube insertion. HISTORY OF PRESENT ILLNESS: 46yo M smoker s/p L chest tube 2/2 to left sided loculated empyema. Patient presented 3 days ago with a one day history of cough, dyspnea and Left sided pleuritic chest pain. He had an initial L chest intubation yesterday,without lung expansion. Today, he had Bronchoscopy, and Left video assisted Thoracoscopy with partial decortication, pneumolysis, draining of 500 cc of pleural fluid and empyema. REVIEW OF SYSTEMS: CONSTITUTIONAL: Absent: fever, chills, diaphoresis, generalized weakness, malaise, loss of appetite, weight change HEENT: Absent: rhinorrhea, nasal congestion, throat pain, throat swelling, difficulty swallowing, mouth swelling, ear pain, eye pain, visual changes CARDIOVASCULAR: Absent: chest pain, syncope, palpitations, irregular heart rate, lightheadedness , peripheral edema RESPIRATORY: Absent: cough, shortness of breath, dyspnea with exertion, orthopnea, wheezing, stridor, hemoptysis GASTROINTESTINAL: Absent: abdominal pain, abdominal distension, nausea, vomiting, diarrhea, constipation, melena, hematochezia GENITOURINARY: Absent: dysuria, frequency, urgency, hesitancy, hematuria, flank pain, genital pain MUSCULOSKELETAL: Absent: myalgia, arthralgia, joint swelling, back pain, neck pain SKIN: Absent: rash, itching, pallor HEMATOLOGIC/IMMUNOLOGIC: Absent: easy bleeding, easy bruising, lymphadenopathy, frequent infections ENDOCRINE: Absent: unexplained weight gain, unexplained weight loss, heat intolerance, cold intolerance NEUROLOGIC: Absent: headache, focal weakness or paresthesias, dizziness, unsteady gait, seizure, mental status changes, bladder or bowel incontinence PSYCHIATRIC: Absent: anxiety, depression, suicidal or homicidal ideation, hallucinations. PHYSICAL EXAMINATION Vital Signs - 24 hr 11/11/17 11/11/17 11/12/17 21:00 22:00 02:00 Temperature 98.7 F 98.5 F Pulse Rate 101 H 95 H Respiratory 18 18 Rate Blood Pressure 146/90 144/71 O2 Sat by Pulse 93 L 93 L Oximetry (%) 11/12/17 11/12/17 11/12/17 06:00 08:05 09:00 Temperature 98.7 F 98.2 F Pulse Rate 100 H 96 H Respiratory 18 18 18 Rate Blood Pressure 136/89 146/78 O2 Sat by Pulse 95 94 L Oximetry (%) 11/12/17 11/12/17 11/12/17 10:00 16:24 16:40 Temperature 98.8 F Pulse Rate 123 H 121 H Respiratory 20 28 H Rate Blood Pressure 130/74 132/87 O2 Sat by Pulse 94 L 88 L 88 L Oximetry (%) 11/12/17 11/12/17 11/12/17 16:55 17:10 17:25 Temperature 98.5 F Pulse Rate 108 H 95 H 100 H Respiratory 22 22 25 H Rate Blood Pressure 137/85 125/93 131/78 O2 Sat by Pulse 90 L 91 L 93 L Oximetry (%) 11/12/17 11/12/17 11/12/17 17:59 18:00 18:45 Temperature 98.2 F Pulse Rate 97 H 98 H Respiratory 22 18 Rate Blood Pressure 133/77 122/84 O2 Sat by Pulse 96 Oximetry (%) 11/12/17 18:56 Temperature Pulse Rate 98 H Respiratory 22 Rate Blood Pressure 131/85 O2 Sat by Pulse Oximetry (%) GENERAL: Awake, alert, and fully oriented, in no acute distress. HEAD: Normal with no signs of trauma. EYES: Pupils equal, round and reactive to light, extraocular movements intact, sclera anicteric, conjunctiva clear. EARS, NOSE, THROAT: Ears normal, nares patent, oropharynx clear without exudates. Moist mucous membranes. NECK: supple, no JVD. LUNGS: Breath sounds reduced on R lung base, Scattered wheezes bilaterally, and bilateral crackles. Two chest tubes, anterior and midline draining sanguinous fluid. HEART: Regular rate and rhythm, normal S1 and S2 without murmur, rub or gallop. ABDOMEN: Soft, nontender, not distended, hyperactive bowel sounds, no guarding, no rebound, no masses. MUSCULOSKELETAL: Normal range of motion at all joints. No bony deformities or tenderness. UPPER EXTREMITIES: 2+ pulses, warm, well-perfused. R peripheral line in place. LOWER EXTREMITIES: 2+ pulses, warm, well-perfused. No calf tenderness. No peripheral edema. SCDs in place NEUROLOGICAL: Cranial nerves II-XII intact. Normal speech. PSYCHIATRIC: Cooperative. Good eye contact. Appropriate mood and affect. SKIN: Warm, dry, normal turgor, no rashes or lesions noted. Laboratory Results - last 24 hr 11/09/17 11/10/17 11/11/17 20:26 07:00 13:00 WBC RBC Hgb Hct MCV MCH MCHC RDW Plt Count MPV Neutrophils % Lymphocytes % Monocytes % Eosinophils % Basophils % Sodium Potassium Chloride Carbon Dioxide Anion Gap BUN Creatinine Creat Clearance w eGFR Random Glucose Calcium Total Bilirubin AST ALT Alkaline Phosphatase LD Total Total Protein Albumin Pleural Neutrophils 84 Pleural Lymphocytes 10 Pleural Monocytes 2 Pleural Eosinophils 3 Pleural Macrophages 1 Pleural Total Protein [place] Screen Negative TB Test (QFT) Negative Blood Type Antibody Screen 11/11/17 11/11/17 11/12/17 Unknown Unknown 05:05 WBC 11.2 H RBC 4.54 Hgb 15.0 Hct 45.0 MCV 99.1 H MCH 33.0 MCHC 33.3 RDW 14.0 Plt Count 286 MPV 7.6 Neutrophils % 75.0 Lymphocytes % 9.9 D Monocytes % 12.2 H Eosinophils % 2.4 Basophils % 0.5 Sodium Potassium Chloride Carbon Dioxide Anion Gap BUN Creatinine Creat Clearance w eGFR Random Glucose Calcium Total Bilirubin AST ALT Alkaline Phosphatase LD Total 163 Total Protein Albumin Pleural Neutrophils Pleural Lymphocytes Pleural Monocytes Pleural Eosinophils Pleural Macrophages Pleural Total Protein 5.854 [place] Screen TB Test (QFT) Blood Type Antibody Screen 11/12/17 11/12/17 05:05 13:11 WBC RBC Hgb Hct MCV MCH MCHC RDW Plt Count MPV Neutrophils % Lymphocytes % Monocytes % Eosinophils % Basophils % Sodium 134 L Potassium 4.0 Chloride 95 L Carbon Dioxide 30 D Anion Gap 9 BUN 13 D Creatinine 0.8 Creat Clearance w eGFR > 60 Random Glucose 89 Calcium 8.7 Total Bilirubin 1.1 H AST 26 D ALT 44 Alkaline Phosphatase 92 LD Total Total Protein 6.9 Albumin 2.6 L Pleural Neutrophils Pleural Lymphocytes Pleural Monocytes Pleural Eosinophils Pleural Macrophages Pleural Total Protein [place] Screen TB Test (QFT) Blood Type A NEGATIVE Antibody Screen Negative Active Medications Generic Name Dose Route Start Last Admin Trade Name Freq PRN Reason Stop Dose Admin Artificial Tears 1 drop 11/12/17 18:49 Artificial Tears OU BID PRN DRY EYES Chlorhexidine Gluconate 1 applic 11/12/17 22:00 Hibiclens For Decolonization - TP HS TELLO Enoxaparin Sodium 40 mg 11/13/17 10:00 Lovenox - SQ DAILY TELLO Fentanyl 50 mcg 11/12/17 16:34 Sublimaze Injection - IVPUSH [id number] PRN PAIN Hydromorphone HCl 0 mg 11/12/17 16:45 11/12/17 16:55 Dilaudid Endless Steamer Tender - [employer] 11/19/17 16:34 10 mg [employer] TELLO Administration Protocol Sodium Chloride 1,000 mls @ 100 mls/hr 11/12/17 16:45 11/12/17 17:52 Normal Saline - IV 0 mls ASDIR TELLO Administration Azithromycin 500 mg/ Dextrose 250 mls @ 250 mls/hr 11/13/17 14:00 IVPB Q24H TELL[facility] CEFTRIAXONE 1 G/50 ML PREMIX 50 mls @ 100 mls/hr 11/13/17 10:00 Ceftriaxone 1 Gm-D5w Bag IVPB DAILY [facility] Mupirocin 1 applic 11/12/17 22:00 Bactroban Ointment (For Decolonization) - NS 11/17/17 21:59 BID TELLO Ondansetron HCl 4 mg 11/12/17 16:34 Zofran Injection IVPUSH Q6H PRN NAUSEA AND/OR VOMITING Senna 1 tab 11/12/17 22:00 Senna - PO BID TELLO ASSESSMENT/PLAN: 46yo M smoker s/p L chest tube 2/2 to left sided loculated empyema Neuro: AAO x3 Moves all limbs No facial droop CVS: s1, s2, tachycardic- maybe due to pain-on [employer] Not a known hypertensive- monitor BP Resp: Scattered crackles with wheezes more posteriorly Chest tubes draining sanguinous fluid- monitor drain Incentive spirometry [employer] for pain Follow up cultures, AFB CXR Chest Physiotherapy BMP, Mg, P, CBC GI: Hyperactive bowel sounds Has been NPO since surgery Start clear fluids : Bowles catheter Monitor ins and outs Prophylaxis SCDs No need for GI FEN BMP Dispo: We will continue to follow the patient. Thank you for this consultative opportunity. Visit type - Emergency Visit Emergency Visit: Yes ED Registration Date: 11/09/17 Care time: The patient presented to the Emergency Department on the above date and was hospitalized for further evaluation of their emergent condition. - New Patient This patient is new to me today: Yes Date on this admission: 11/13/17 - Critical Care Critical Care patient: Yes Total Critical Care Time (in minutes): 40 Critical Care Statement: The care of this patient involved high complexity decision making to prevent further life threatening deterioration of the patient 's condition and/or to evaluate & treat vital organ system(s) failure or risk of failure.
--- NOTE | 2017-11-12 19:32 | PN ---
Teaching Attending Note Name of Resident: Arnaud Wick ATTENDING PHYSICIAN STATEMENT I saw and evaluated the patient. I reviewed the resident's note and discussed the case with the resident. I agree with the resident's findings and plan as documented. SUBJECTIVE: pain has imporved , SOB improved OBJECTIVE: NAD, AAOx3 HEENT: MMM, no facial droop, no LAP. CV: RRR, no MRG, tahcy Lungs: decreased breath sounds at L base , bur breath sounds have improved an dcrackles could be heard Abd: soft,NT, ND , NL BS Ext: no edema . ASSESSMENT AND PLAN: 46 y/o gentleman with no significant PMH but smoking , who presented with L sided CP and cough . He was found to have a large pleural effusion. 1- Sepsis: with L pleural effusion. thoracentesis shows exudative fluid , with cloudy appearance and 2600 WBC. probably parapneumonic---> empyema - s/p drainage , 1900 cc drained. - s/p VATs and pneumolysis today - cont chest tube - follow fluid cx - cont abx day 4, will change abx per culture if needed 2- Small pericardial effusion : echo pending read [place] pending 3- sinus tahcycardia : has tahcycardia at base line pain and SOB are contributing. looks euvolemic now. doff IVF DVT PX : heparin sq
--- NOTE | 2017-11-12 19:50 | PN ---
Physical Exam: SUBJECTIVE: Patient seen and examined. No acute events overnight. Pt s/p chest tube. He only complains of some pain around the site of the tube, but states that his breathing is significantly better. OBJECTIVE: Vital Signs Period Temp Pulse Resp BP Sys/Jimenez Pulse Ox Last 24 Hr 98.2 F-98.8 F 95-123 18-28 122-146/71-93 88-96 GENERAL: middle-aged male, standing up, AAOx3, in NAD HEENT: NC, AT NECK: Trachea midline, full range of motion, supple. LUNGS: decreased left-sided breath sounds on bottom third of lung HEART: tachycardic ABDOMEN: Soft, nontender, nondistended, normoactive bowel sounds, no guarding, no rebound, no hepatosplenomegaly, no masses. EXTREMITIES: 1+ b/l LE edema NEUROLOGICAL: Cranial nerves II through XII grossly intact. Normal speech, gait not observed. Laboratory Results - last 24 hr 11/09/17 11/10/17 11/11/17 20:26 07:00 13:00 WBC RBC Hgb Hct MCV MCH MCHC RDW Plt Count MPV Neutrophils % Lymphocytes % Monocytes % Eosinophils % Basophils % Sodium Potassium Chloride Carbon Dioxide Anion Gap BUN Creatinine Creat Clearance w eGFR Random Glucose Calcium Total Bilirubin AST ALT Alkaline Phosphatase LD Total Total Protein Albumin Pleural Neutrophils 84 Pleural Lymphocytes 10 Pleural Monocytes 2 Pleural Eosinophils 3 Pleural Macrophages 1 Pleural Total Protein [place] Screen Negative TB Test (QFT) Negative Blood Type Antibody Screen 11/11/17 11/11/17 11/12/17 Unknown Unknown 05:05 WBC 11.2 H RBC 4.54 Hgb 15.0 Hct 45.0 MCV 99.1 H MCH 33.0 MCHC 33.3 RDW 14.0 Plt Count 286 MPV 7.6 Neutrophils % 75.0 Lymphocytes % 9.9 D Monocytes % 12.2 H Eosinophils % 2.4 Basophils % 0.5 Sodium Potassium Chloride Carbon Dioxide Anion Gap BUN Creatinine Creat Clearance w eGFR Random Glucose Calcium Total Bilirubin AST ALT Alkaline Phosphatase LD Total 163 Total Protein Albumin Pleural Neutrophils Pleural Lymphocytes Pleural Monocytes Pleural Eosinophils Pleural Macrophages Pleural Total Protein 5.854 [place] Screen TB Test (QFT) Blood Type Antibody Screen 11/12/17 11/12/17 05:05 13:11 WBC RBC Hgb Hct MCV MCH MCHC RDW Plt Count MPV Neutrophils % Lymphocytes % Monocytes % Eosinophils % Basophils % Sodium 134 L Potassium 4.0 Chloride 95 L Carbon Dioxide 30 D Anion Gap 9 BUN 13 D Creatinine 0.8 Creat Clearance w eGFR > 60 Random Glucose 89 Calcium 8.7 Total Bilirubin 1.1 H AST 26 D ALT 44 Alkaline Phosphatase 92 LD Total Total Protein 6.9 Albumin 2.6 L Pleural Neutrophils Pleural Lymphocytes Pleural Monocytes Pleural Eosinophils Pleural Macrophages Pleural Total Protein [place] Screen TB Test (QFT) Blood Type A NEGATIVE Antibody Screen Negative Active Medications Generic Name Dose Route Start Last Admin Trade Name Freq PRN Reason Stop Dose Admin Artificial Tears 1 drop 11/12/17 18:49 Artificial Tears OU BID PRN DRY EYES Artificial Tears 1 applic 11/12/17 22:00 Artificial Tears Ointment - OU HS [facility] Chlorhexidine Gluconate 1 applic 11/12/17 22:00 Hibiclens For Decolonization - TP HS [facility] Enoxaparin Sodium 40 mg 11/13/17 10:00 Lovenox - SQ DAILY TELLO Fentanyl 50 mcg 11/12/17 16:34 Sublimaze Injection - IVPUSH [id number] PRN PAIN Hydromorphone HCl 0 mg 11/12/17 16:45 11/12/17 16:55 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 - [employer] 11/19/17 16:34 10 mg [employer]ET[employer] TELLO Administration Protocol Sodium Chloride 1,000 mls @ 100 mls/hr 11/12/17 16:45 11/12/17 17:52 Normal Saline - IV 0 mls ASDIR TELLO Administration Azithromycin 500 mg/ Dextrose 250 mls @ 250 mls/hr 11/13/17 14:00 IVPB Q24H TELLO CEFTRIAXONE 1 G/50 ML PREMIX 50 mls @ 100 mls/hr 11/13/17 10:00 Ceftriaxone 1 Gm-D5w Bag IVPB DAILY TELLO Mupirocin 1 applic 11/12/17 22:00 Bactroban Ointment (For Decolonization) - NS 11/17/17 21:59 BID TELLO Ondansetron HCl 4 mg 11/12/17 16:34 Zofran Injection IVPUSH Q6H PRN NAUSEA AND/OR VOMITING Senna 1 tab 11/12/17 22:00 Senna - PO BID TELLO ASSESSMENT/PLAN: 46M w/ no significant PMH who presented with L sided CP and cough, found to have a large left-sided pleural effusion. #Sepsis with L pleural effusion - s/p thoracentesis and VATS - f/u pleural fluid labs and cultures - cont abx, day 4 - pain control with morphine and percocet #Small pericardial effusion -f/u echo -[place]: negative -HIV negative -TB pending #sinus tachycardia -has tachycardia at baseline -pain and SOB are contributing. -looks euvolemic now #FEN/ppx -no fluids -electrolytes wnl -sodium controlled diet -no GI ppx -lovenox -Arnaud Wick MD PGY1 Visit type - Emergency Visit Emergency Visit: Yes ED Registration Date: 11/09/17 Care time: The patient presented to the Emergency Department on the above date and was hospitalized for further evaluation of their emergent condition. - New Patient This patient is new to me today: No - Critical Care Critical Care patient: No
[2017-11-12] MEDS: MUPIROCIN 2% TOPICAL OINTMENT FOR DECOLONIZATION NS SCH (21:46)
[2017-11-12] MEDS: SENNOSIDES 8.6MG TABLET (FP) PO SCH (21:46)
[2017-11-12] MEDS ORDERED: MINERAL OIL/PETROLATUM,WHITE 3.5 GM TUBE OU SCH (22:00)
[2017-11-12] MEDS ORDERED: CHLORHEXIDINE GLUCONATE 4% CLEANSER FOR DECOLONIZATION TP SCH (22:00)
--- NOTE | 2017-11-12 22:15 | CONSULT ---
Consult Consult Specialty:: Pulm/CCM Reason for Consultation:: S/p Lt lung Decortication - History of Present Illness Chief Complaint: Chest tube site pain History of Present Illness: 46yom smoker with no significant PMH who presented with L sided chest pain and .cough. He was found to have a large Lt pleural effusion and small pericardial effusion on imaging. Thoracentesis + for exudative fluid~2L with leukocytosis m/ l empyema. Today he is s/p Flexible bronchoscopy, left thoracoscopy, pneumolysis , partial decortication and drainage of effusion with 2 left chest tube drains. He is tranferred to ICU for post-op management. In ICU rec'd A+O x3. VS HR 85, BP 122/83, o2 sat 97% on 2L NC. Lt axillary CT x2 to 40cm H20 LWS with sero sang drainage. No air leak noted. CT site intact. 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 Cardio/Vascular: No: AFIB Pulmonary: No: Asthma Gastrointestinal: No: Ascites Hepatobiliary: No: Cirrhosis Renal/: No: Renal Failure Infectious Disease: No: AIDS Psych: No: Addictions Musculoskeletal: No: Bursitis Rheumatology: No: Fibromyalgia Endocrine: No: Diabetes Mellitus - Alcohol/Substance Use Hx Alcohol Use: Yes (Social) - Smoking History Smoking history: Former smoker Have you smoked in the past 12 months: No Aproximately how many cigarettes per day: 3 If you are a former smoker, when did you quit?: A year ago Home Medications - Allergies Allergies/Adverse Reactions: Allergies Allergy/AdvReac Type Severity Reaction Status Date / Time No Known Allergies Allergy Verified 11/09/17 11:09 - Home Medications Home Medications: Ambulatory Orders NK [No Known Home Medication] 11/09/17 Family Disease History - Family Disease History Family History: Unremarkable Review of Systems - Review of Systems Constitutional: reports: No Symptoms Eyes: reports: No Symptoms Cardiovascular: reports: No Symptoms Respiratory: reports: Cough, Other (Lt chest Pleuritic pain) Gastrointestinal: reports: No Symptoms Genitourinary: reports: No Symptoms Neurological: reports: No Symptoms Hematology/Lymphatic: reports: No Symptoms Physical Exam Vital Signs: Vital Signs Temperature 98.2 F 11/12/17 17:59 Pulse Rate 89 11/12/17 20:00 Respiratory Rate 20 11/12/17 20:00 Blood Pressure 124/82 11/12/17 20:00 O2 Sat by Pulse Oximetry (%) 96 11/12/17 20:46 Constitutional: Yes: Well Nourished, No Distress, Calm Eyes: Yes: WNL, PERRL HENT: Yes: Atraumatic, Normocephalic Neck: Yes: Supple, Trachea Midline Cardiovascular: Yes: Regular Rate and Rhythm, S1, S2 Respiratory: Yes: Regular, Diminished (Lt base), On Nasal O2, Other (CT to LWS in place draining small amt serosang fluid. No air leak) Gastrointestinal: Yes: Normal Bowel Sounds, Soft Renal/: Yes: Bowles Present Extremities: Yes: WNL Edema: No Peripheral Pulses WNL: Yes Wound/Incision: Yes: Dressing Dry and Intact Neurological: Yes: Alert, Oriented Psychiatric: Yes: Alert, Oriented Labs: CBC, BMP 11/12/17 05:05 11/12/17 05:05 CBC,CMP WBC 11.2 K/mm3 (4.0-10.0) H 11/12/17 05:05 RBC 4.54 M/mm3 (4.00-5.60) 11/12/17 05:05 Hgb 15.0 GM/dL (11.7-16.9) 11/12/17 05:05 Hct 45.0 % (35.4-49) 11/12/17 05:05 MCV 99.1 fl (80-96) H 11/12/17 05:05 MCH 33.0 pg (25.7-33.7) 11/12/17 05:05 MCHC 33.3 g/dl (32.0-35.9) 11/12/17 05:05 RDW 14.0 % (11.9-15.9) 11/12/17 05:05 Plt Count 286 K/MM3 (134-434) 11/12/17 05:05 MPV 7.6 fl (7.5-11.1) 11/12/17 05:05 Neutrophils % 75.0 % (42.8-82.8) 11/12/17 05:05 Lymphocytes % 9.9 % (8-40) D 11/12/17 05:05 Monocytes % 12.2 % (3.8-10.2) H 11/12/17 05:05 Eosinophils % 2.4 % (0-4.5) 11/12/17 05:05 Basophils % 0.5 % (0-2.0) 11/12/17 05:05 Sodium 134 mmol/L (136-145) L 11/12/17 05:05 Potassium 4.0 mmol/L (3.5-5.1) 11/12/17 05:05 Chloride 95 mmol/L (98-107) L 11/12/17 05:05 Carbon Dioxide 30 mmol/L (21-32) D 11/12/17 05:05 Anion Gap 9 (8-16) 11/12/17 05:05 BUN 13 mg/dL (7-18) D 11/12/17 05:05 Creatinine 0.8 mg/dL (0.7-1.3) 11/12/17 05:05 Creat Clearance w eGFR > 60 (>60) 11/12/17 05:05 Random Glucose 89 mg/dL (74-106) 11/12/17 05:05 Hemoglobin A1c % 5.7 % (4.8-6.0) 11/10/17 07:00 Lactic Acid 1.1 mmol/L (0.4-2.0) 11/09/17 11:54 Calcium 8.7 mg/dL (8.5-10.1) 11/12/17 05:05 Total Bilirubin 1.1 mg/dL (0.2-1.0) H 11/12/17 05:05 Direct Bilirubin 0.6 mg/dL (0.0-0.2) H 11/11/17 06:00 AST 26 U/L (15-37) D 11/12/17 05:05 ALT 44 U/L (12-78) 11/12/17 05:05 Alkaline Phosphatase 92 U/L (45-117) 11/12/17 05:05 LD Total 163 U/L (87-241) 11/11/17 Unknown C-Reactive Protein 27.1 MG/DL (0.00-0.3) H 11/09/17 20:26 Total Protein 6.9 g/dl (6.4-8.2) 11/12/17 05:05 Albumin 2.6 g/dl (3.4-5.0) L 11/12/17 05:05 TSH 2.92 uIU/ml (0.358-3.74) 11/10/17 07:00 Active Medications Artificial Tears (Artificial Tears) 1 drop OU BID PRN PRN Reason: DRY EYES Last Admin: 11/12/17 21:45 Dose: 1 drop Artificial Tears (Artificial Tears Ointment -) 1 applic OU HS [facility] Last Admin: 11/12/17 21:46 Dose: 1 applic Chlorhexidine Gluconate (Hibiclens For Decolonization -) 1 applic TP HS [facility] Last Admin: 11/12/17 21:46 Dose: 1 applic Enoxaparin Sodium (Lovenox -) 40 mg SQ DAILY TELLO Fentanyl (Sublimaze Injection -) 50 mcg IVPUSH [id number] PRN PRN Reason: PAIN Hydromorphone HCl (Dilaudid Skein Dyer -) 0 mg ASSISTANT PROFESSOR OF ENGLISH ASSISTANT PROFESSOR OF ENGLISH TELLO PRN Reason: Protocol Stop: 11/19/17 16:34 Last Admin: 11/12/17 16:55 Dose: 10 mg Sodium Chloride (Normal Saline -) 1,000 mls @ 100 mls/hr IV ASDIR [facility] Last Admin: 11/12/17 17:52 Dose: 0 mls Azithromycin 500 mg/ Dextrose 250 mls @ 250 mls/hr IVPB Q24H TELLO CEFTRIAXONE 1 G/50 ML PREMIX (Ceftriaxone 1 Gm-D5w Bag) 50 mls @ 100 mls/hr IVPB DAILY TELLO Mupirocin (Bactroban Ointment (For Decolonization) -) 1 applic NS BID [facility] Stop: 11/17/17 21:59 Last Admin: 11/12/17 21:46 Dose: 1 applic Ondansetron HCl (Zofran Injection) 4 mg IVPUSH Q6H PRN PRN Reason: NAUSEA AND/OR VOMITING Senna (Senna -) 1 tab PO BID [facility] Last Admin: 11/12/17 21:46 Dose: 1 tab Microbiology 11/11/17 13:00 Pleural Fluid Gram Stain - Final 11/11/17 13:00 Pleural Fluid Body Fluid Culture - Preliminary NO AEROBIC GROWTH, 24 HRS 11/10/17 09:15 Sputum - Expectorated Gram Stain - Final 11/10/17 09:15 Sputum - Expectorated Sputum Culture - Final NORMAL RESPIRATORY KOFI 11/11/17 13:00 Pleural Fluid AFB Smear Concentration - Final 11/11/17 13:00 Pleural Fluid Mycobacterial Culture - Preliminary 11/09/17 12:35 Blood - Peripheral Venous Blood Culture - Preliminary NO GROWTH OBTAINED AFTER 72 HOURS, INCUBATION TO CONTINUE FOR 2 DAYS. 11/09/17 12:35 Blood - Peripheral Venous Blood Culture - Preliminary NO GROWTH OBTAINED AFTER 72 HOURS, INCUBATION TO CONTINUE FOR 2 DAYS. 11/11/17 13:00 Pleural Fluid SANDRA Preparation - Preliminary 11/11/17 13:00 Pleural Fluid Fungal Culture - Preliminary Vital Signs Period Temp Pulse Resp BP Sys/Jimenez Pulse Ox Last 24 Hr 98.0 F-98.8 F 81-123 18-28 118-146/71-93 88-97 Imaging - Results Chest X-ray: Report Reviewed Assessment/Plan 46yom smoker with no PMH presents with Lt lung empyema is now s/p VATs and decortication of empyema. Plan: Resp: Empyema s/p VATS and decortication -Cont CT to LWS -Assess for air leak and bleeding -O2 support for O2 st>92% -incentive spirometer -ASSISTANT PROFESSOR OF ENGLISH pain management -Cont empiric antibiotic coverage with Azithro and Ceftriaxone -f/u cultures; tailor antib to cultures -CXR in am -OOB as yanely -DVT PX : heparin sq ZACHARY Adames CC time 35mins
[2017-11-13 06:36] LABS: BASO % 0.3 % (0-2.0); EOS % 0.3 % (0-4.5); HEMATOCRIT 40.8 % (35.4-49); HEMOGLOBIN 13.7 GM/dL (11.7-16.9); LYMPH % 9.6 % (8-40); MCH 33.2 pg (25.7-33.7); MCHC 33.6 g/dl (32.0-35.9); MEAN CELL VOLUME 98.7 fl (80-96); MEAN PLT VOLUME 7.5 fl (7.5-11.1); MONO % 10.5 % (3.8-10.2); NEUT % 79.3 % (42.8-82.8); PLATELET COUNT 301 K/MM3 (134-434); RBC 4.14 M/mm3 (4.00-5.60); RDW 13.5 % (11.9-15.9); WHITE BLOOD COUNT 11.7 K/mm3 (4.0-10.0)
[2017-11-13] MEDS ORDERED: HEMOQUE CONTROL SOLUTION ONE ×2 (06:51→06:56)
[2017-11-13 07:03] LABS: ANION GAP 10 (8-16); BLOOD UREA NITROGEN 12 mg/dL (7-18); CALCIUM 8.2 mg/dL (8.5-10.1); CHLORIDE 98 mmol/L (98-107); CO2 27 mmol/L (21-32); GLUCOSE,RANDOM 115 mg/dL (74-106); MAGNESIUM 2.3 mg/dL (1.8-2.4); POTASSIUM 4.6 mmol/L (3.5-5.1); SODIUM 135 mmol/L (136-145)
[2017-11-13 07:06] LABS: CREATININE 0.6 mg/dL (0.7-1.3); PHOSPHOROUS 4.2 mg/dL (2.5-4.9)
--- NOTE | 2017-11-13 09:07 | PN ---
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 He is feeling fine, with moderate pain around site of chest tube placement, worsened by coughing. He states that his breathing is improved compared to yesterday. He denies fevers, chills, abdominal pain, n/v/d/c, and dysuria. OBJECTIVE: Vital Signs Period Temp Pulse Resp BP Sys/Jimenez Pulse Ox Last 24 Hr 98.0 F-98.8 F 81-123 18-28 114-139/74-93 88-97 GENERAL: middle-aged male, sitting up, AAOx3, in NAD HEENT: NC, AT NECK: Trachea midline, full range of motion, supple. LUNGS: decreased left-sided breath sounds on bottom half of lung with rales. 2 chest tubes in left side with 0.5L currently collected in drain. HEART: regular rate and rhythm, no murmurs ABDOMEN: Soft, nontender, nondistended, normoactive bowel sounds, no guarding, no rebound, no hepatosplenomegaly, no masses. EXTREMITIES: 1+ b/l LE edema NEUROLOGICAL: Cranial nerves II through XII grossly intact. Normal speech, gait not observed. Laboratory Results - last 24 hr 11/09/17 11/12/17 11/12/17 20:26 13:11 13:15 WBC RBC Hgb Hct MCV MCH MCHC RDW Plt Count MPV Neutrophils % Lymphocytes % Monocytes % Eosinophils % Basophils % Sodium Potassium Chloride Carbon Dioxide Anion Gap BUN Creatinine Random Glucose Calcium Phosphorus Magnesium TB Test (QFT) Negative Blood Type A NEGATIVE A NEGATIVE Antibody Screen Negative Negative 11/13/17 11/13/17 06:20 06:20 WBC 11.7 H RBC 4.14 Hgb 13.7 Hct 40.8 MCV 98.7 H MCH 33.2 MCHC 33.6 RDW 13.5 Plt Count 301 MPV 7.5 Neutrophils % 79.3 Lymphocytes % 9.6 Monocytes % 10.5 H Eosinophils % 0.3 D Basophils % 0.3 Sodium 135 L Potassium 4.6 Chloride 98 Carbon Dioxide 27 Anion Gap 10 BUN 12 Creatinine 0.6 L D Random Glucose 115 H D Calcium 8.2 L Phosphorus 4.2 Magnesium 2.3 TB Test (QFT) Blood Type Antibody Screen Active Medications Generic Name Dose Route Start Last Admin Trade Name Freq PRN Reason Stop Dose Admin Artificial Tears 1 drop 11/12/17 18:49 11/12/17 21:45 Artificial Tears OU 1 drop BID PRN Administration DRY EYES Artificial Tears 1 applic 11/12/17 22:00 11/12/17 21:46 Artificial Tears Ointment - OU 1 applic HS TELLO Administration Chlorhexidine Gluconate 1 applic 11/12/17 22:00 11/12/17 21:46 Hibiclens For Decolonization - TP 1 applic HS TELLO Administration Enoxaparin Sodium 40 mg 11/13/17 10:00 Lovenox - SQ DAILY TELLO Fentanyl 50 mcg 11/12/17 16:34 Sublimaze Injection - IVPUSH [id number] PRN PAIN Hydromorphone HCl 0 mg 11/12/17 16:45 11/12/17 16:55 Dilaudid Broiler Chef Or Cook - BOILERMAKER HELPER 11/19/17 16:34 10 mg BOILERMAKER HELPER TELLO Administration Protocol Sodium Chloride 1,000 mls @ 100 mls/hr 11/12/17 16:45 11/12/17 17:52 Normal Saline - IV 0 mls ASDIR TELLO Administration Azithromycin 500 mg/ Dextrose 250 mls @ 250 mls/hr 11/13/17 14:00 IVPB Q24H TELLO CEFTRIAXONE 1 G/50 ML PREMIX 50 mls @ 100 mls/hr 11/13/17 10:00 Ceftriaxone 1 Gm-D5w Bag IVPB DAILY TELLO Mupirocin 1 applic 11/12/17 22:00 11/12/17 21:46 Bactroban Ointment (For Decolonization) - NS 11/17/17 21:59 1 applic BID TELLO Administration Ondansetron HCl 4 mg 11/12/17 16:34 Zofran Injection IVPUSH Q6H PRN NAUSEA AND/OR VOMITING Senna 1 tab 11/12/17 22:00 11/12/17 21:46 Senna - PO 1 tab BID TELLO Administration ASSESSMENT/PLAN: 46M w/ no significant PMH who presented with L sided CP and cough, found to have a large left-sided pleural effusion. #Sepsis with L pleural effusion - s/p thoracentesis, flex bronch, pneumolysis, partial decortication, and effusion drainage - per Dr. Paris, chest tubes set to suction until night, possible tube removal saturday/saturday, and possible D/C on saturday/saturday. - f/u pleural fluid labs and cultures - cont abx, day 5 - pain control with oxycodone - can transfer pt from ICU to floor #Small pericardial effusion -echo: all normal except for moderate pericardial effusion. LVEF = 60% -TB: negative #sinus tachycardia -has tachycardia at baseline -pain and SOB are contributing. -looks euvolemic now #FEN/ppx -NS @ 100 -electrolytes wnl -sodium controlled diet -no GI ppx -lovenox 40 #Dispo -pt to be discharged saturday/saturday if no problems. Might need home O2. -Arnaud Wick MD PGY1 Visit type - Emergency Visit Emergency Visit: Yes ED Registration Date: 11/09/17 Care time: The patient presented to the Emergency Department on the above date and was hospitalized for further evaluation of their emergent condition. - New Patient This patient is new to me today: No - Critical Care Critical Care patient: Yes Total Critical Care Time (in minutes): 35 Critical Care Statement: The care of this patient involved high complexity decision making to prevent further life threatening deterioration of the patient 's condition and/or to evaluate & treat vital organ system(s) failure or risk of failure.
[2017-11-13] MEDS: ENOXAPARIN NA (PORCINE) 40 MG/0.4 ML DISP.SYRIN SQ SCH ×3 (09:16→13:14)
[2017-11-13] MEDS: SENNOSIDES 8.6MG TABLET (FP) PO SCH ×3 (09:16→21:12)
[2017-11-13] MEDS: MUPIROCIN 2% TOPICAL OINTMENT FOR DECOLONIZATION NS SCH (09:16)
--- NOTE | 2017-11-13 09:57 | PN ---
Progress Note (short form) - Note Progress Note: PT without any complaints today, has pain when coughing. Vital Signs Period Temp Pulse Resp BP Sys/Jimenez Pulse Ox Last 24 Hr 98 F-98.8 F 81-123 18-28 114-139/74-93 88-97 uop-1300ml CT-#1/ 250 ml serosangrenous, no air leak CT-#2/ 190ml serosangrneous, no airleak GEN: pt appears comfortable CV: RRR Lungs: CTA b/l, no air leak small amount of serosangrenous drainage around CT sites LE: no calf tenderness note b/l CBC, BMP //17 06:20 12/ 06:20 CXR: no pntx, CT is place, small amount of SQ emphysema Problem List - Problems (1) Pleural effusion on left Assessment/Plan: POD#1 s/p Flexible bronchoscopy, left thoracoscopy, pneumolysis, partial decortication, drainage of effusion Continue CT to LWS, may be oob to chair today Dilaudid SENIOR CORPORATE RECRUITER for pain control discontinue IVF, pt tolerating a diet remove brooks catheter for TOV IV abx, await cultures from the OR Code(s): J90 - PLEURAL EFFUSION, NOT ELSEWHERE CLASSIFIED
[2017-11-13] MEDS ORDERED: CEFTRIAXONE 1 G/50 ML PREMIX 50 ML IVPB SCH (10:00)
--- NOTE | 2017-11-13 11:06 | PN ---
Physical Exam: SUBJECTIVE: Patient seen and examined No acute events overnight. Patient's pain is controlled. Patient denies any difficulty breathing or SOB. Denies fevers, chills, chest pain OBJECTIVE: Vital Signs Period Temp Pulse Resp BP Sys/Jimenez Pulse Ox Last 24 Hr 98 F-98.8 F 81-123 18-28 114-139/74-93 88-97 GENERAL: The patient is awake, alert, and fully oriented, in no acute distress. HEAD: Normal with no signs of trauma. EYES:Extraocular movements intact, sclera anicteric, conjunctiva clear. No ptosis. ENT: Ears normal, nares patent, oropharynx clear without exudates, moist mucous membranes. NECK: Trachea midline, full range of motion, supple. LUNGS: Decreased breath sounds at L base, Scattered rhonchi throughout left lung , No accessory muscle use. Drained 347 mL from chest tubes HEART: Regular rate and rhythm, S1, S2 without murmur, rub or gallop. ABDOMEN: Soft, nontender, nondistended, normoactive bowel sounds, no guarding, no rebound, no hepatosplenomegaly, no masses. EXTREMITIES: 2+ pulses, warm, well-perfused, no edema. NEUROLOGICAL: Cranial nerves II through XII grossly intact. Normal speech, gait not observed. PSYCH: Normal mood, normal affect. SKIN: Warm, dry, normal turgor, no rashes or lesions noted Laboratory Results - last 24 hr 11/09/17 11/12/17 11/12/17 20:26 13:11 13:15 WBC RBC Hgb Hct MCV MCH MCHC RDW Plt Count MPV Neutrophils % Lymphocytes % Monocytes % Eosinophils % Basophils % Sodium Potassium Chloride Carbon Dioxide Anion Gap BUN Creatinine Random Glucose Calcium Phosphorus Magnesium TB Test (QFT) Negative Blood Type A NEGATIVE A NEGATIVE Antibody Screen Negative Negative 11/13/17 11/13/17 06:20 06:20 WBC 11.7 H RBC 4.14 Hgb 13.7 Hct 40.8 MCV 98.7 H MCH 33.2 MCHC 33.6 RDW 13.5 Plt Count 301 MPV 7.5 Neutrophils % 79.3 Lymphocytes % 9.6 Monocytes % 10.5 H Eosinophils % 0.3 D Basophils % 0.3 Sodium 135 L Potassium 4.6 Chloride 98 Carbon Dioxide 27 Anion Gap 10 BUN 12 Creatinine 0.6 L D Random Glucose 115 H D Calcium 8.2 L Phosphorus 4.2 Magnesium 2.3 TB Test (QFT) Blood Type Antibody Screen Active Medications Generic Name Dose Route Start Last Admin Trade Name Freq PRN Reason Stop Dose Admin Artificial Tears 1 drop 11/12/17 18:49 11/12/17 21:45 Artificial Tears OU 1 drop BID PRN Administration DRY EYES Artificial Tears 1 applic 11/12/17 22:00 11/12/17 21:46 Artificial Tears Ointment - OU 1 applic HS TELLO Administration Chlorhexidine Gluconate 1 applic 11/12/17 22:00 11/12/17 21:46 Hibiclens For Decolonization - TP 1 applic HS TELLO Administration Enoxaparin Sodium 40 mg 11/13/17 10:00 11/13/17 09:26 Lovenox - SQ Not Given DAILY TELLO Hydromorphone HCl 0 mg 11/12/17 16:45 11/12/17 16:55 Dilaudid Health Workers - GRADUATING MACHINE OPERATOR 11/19/17 16:34 10 mg GRADUATING MACHINE OPERATOR TELLO Administration Protocol Azithromycin 500 mg/ Dextrose 250 mls @ 250 mls/hr 11/13/17 14:00 IVPB Q24H TELLO CEFTRIAXONE 1 G/50 ML PREMIX 50 mls @ 100 mls/hr 11/13/17 10:00 11/13/17 09: 16 Ceftriaxone 1 Gm-D5w Bag IVPB 100 mls/hr DAILY TELLO Administration Mupirocin 1 applic 11/12/17 22:00 11/13/17 09:16 Bactroban Ointment (For Decolonization) - NS 11/17/17 21:59 1 applic BID TELLO Administration Ondansetron HCl 4 mg 11/12/17 16:34 Zofran Injection IVPUSH Q6H PRN NAUSEA AND/OR VOMITING Senna 1 tab 11/12/17 22:00 11/13/17 09:25 Senna - PO Not Given BID TELLO ASSESSMENT/PLAN: 46 y.o. M with L empyema status post vats w/ decortication and drainage Respiratory Patient with two chest tubes in place Monitor chest tube drainage Get the daily x-rays Pain control with dilaudid GRADUATING MACHINE OPERATOR ID Patient with left empyema Continue antibiotics Ceftriaxone and azithromycin FEN/GI -No IVF -WNL -Sodium controlled diet Ppx -Lovenox for dvt ppx -no GI ppx Disposition:Transfer to [facility] Visit type - Emergency Visit Emergency Visit: Yes ED Registration Date: 11/09/17 Care time: The patient presented to the Emergency Department on the above date and was hospitalized for further evaluation of their emergent condition. - New Patient This patient is new to me today: Yes Date on this admission: 11/13/17 - Critical Care Critical Care patient: Yes Total Critical Care Time (in minutes): 40 Critical Care Statement: The care of this patient involved high complexity decision making to prevent further life threatening deterioration of the patient 's condition and/or to evaluate & treat vital organ system(s) failure or risk of failure.
--- NOTE | 2017-11-13 11:16 | PN ---
Progress Note, Physician Chief Complaint: s/p left VATS under general anesthesia History of Present Illness: post op day one - Current Medication List Current Medications: Active Medications Artificial Tears (Artificial Tears) 1 drop OU BID PRN PRN Reason: DRY EYES Last Admin: 11/12/17 21:45 Dose: 1 drop Artificial Tears (Artificial Tears Ointment -) 1 applic OU HS [facility] Last Admin: 11/12/17 21:46 Dose: 1 applic Chlorhexidine Gluconate (Hibiclens For Decolonization -) 1 applic TP HS [facility] Last Admin: 11/12/17 21:46 Dose: 1 applic Enoxaparin Sodium (Lovenox -) 40 mg SQ DAILY [facility] Last Admin: 11/13/17 09:26 Dose: Not Given Azithromycin 500 mg/ Dextrose 250 mls @ 250 mls/hr IVPB Q24H [facility] CEFTRIAXONE 1 G/50 ML PREMIX (Ceftriaxone 1 Gm-D5w Bag) 50 mls @ 100 mls/hr IVPB DAILY [facility] Last Admin: 11/13/17 09:16 Dose: 100 mls/hr Mupirocin (Bactroban Ointment (For Decolonization) -) 1 applic NS BID [facility] Stop: 11/17/17 21:59 Last Admin: 11/13/17 09:16 Dose: 1 applic Ondansetron HCl (Zofran Injection) 4 mg IVPUSH Q6H PRN PRN Reason: NAUSEA AND/OR VOMITING Senna (Senna -) 1 tab PO BID [facility] Last Admin: 11/13/17 09:25 Dose: Not Given - Objective Vital Signs: Vital Signs Temperature 98 F 11/13/17 10:00 Pulse Rate 90 11/13/17 10:00 Respiratory Rate 18 11/13/17 10:00 Blood Pressure 134/88 11/13/17 10:00 O2 Sat by Pulse Oximetry (%) 96 11/13/17 10:00 Constitutional: Yes: Well Nourished Cardiovascular: Yes: WNL Respiratory: Yes: On Nasal O2, Other (chest tube in place, draining) Gastrointestinal: Yes: WNL Labs: CBC, BMP 11/13/17 06:20 11/13/17 06:20 INR, PTT INR 1.29 (0.82-1.09) H 11/10/17 07:00 Assessment/Plan using payroll master minimally, no nausea or vomiting or other adverse effects of anesthetic, 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 Dept of anesthesia will sign off care at this time.
--- NOTE | 2017-11-13 12:33 | PN ---
Teaching Attending Note Name of Resident: Stone Thapa ATTENDING PHYSICIAN STATEMENT I saw and evaluated the patient. I reviewed the resident's note and discussed the case with the resident. I agree with the resident's findings and plan as documented. SUBJECTIVE: Pt seen and examined in the ICU. s/p L VATS/pneumolysis/partial decortication. Pain adequately controlled with WORT EXTRACTOR. No shortness of breath. No fevers or chills. OBJECTIVE: Last Vital Signs Temp Pulse Resp BP Pulse Ox 98 F 86 18 122/76 96 11/13/17 10:00 11/13/17 12:00 11/13/17 12:00 11/13/17 12:00 11/13/17 10:00 Intake & Output 11/10/17 11/11/17 11/12/17 11/13/17 23:59 23:59 23:59 23:59 Intake Total 429 160 0615 900 Output Total 1850 1907 1095 Balance 330 -1268 1093 -195 Weight 215 lb 4 oz Gen: NAD at rest Heart: RRR Lung: decreased breath sounds left base Abd: soft, nontender Ext: no edema Chest tubes: serosanguinous drainage, no air leak CBC, BMP 11/13/17 06:20 11/13/17 06:20 Active Medications Artificial Tears (Artificial Tears) 1 drop OU BID PRN PRN Reason: DRY EYES Last Admin: 11/12/17 21:45 Dose: 1 drop Artificial Tears (Artificial Tears Ointment -) 1 applic OU HS [facility] Last Admin: 11/12/17 21:46 Dose: 1 applic Chlorhexidine Gluconate (Hibiclens For Decolonization -) 1 applic TP HS [facility] Last Admin: 11/12/17 21:46 Dose: 1 applic Enoxaparin Sodium (Lovenox -) 40 mg SQ DAILY [facility] Last Admin: 11/13/17 09:26 Dose: Not Given Azithromycin 500 mg/ Dextrose 250 mls @ 250 mls/hr IVPB Q24H [facility] CEFTRIAXONE 1 G/50 ML PREMIX (Ceftriaxone 1 Gm-D5w Bag) 50 mls @ 100 mls/hr IVPB DAILY [facility] Last Admin: 11/13/17 09:16 Dose: 100 mls/hr Mupirocin (Bactroban Ointment (For Decolonization) -) 1 applic NS BID [facility] Stop: 11/17/17 21:59 Last Admin: 11/13/17 09:16 Dose: 1 applic Ondansetron HCl (Zofran Injection) 4 mg IVPUSH Q6H PRN PRN Reason: NAUSEA AND/OR VOMITING Oxycodone HCl (Roxicodone -) 10 mg PO Q3H PRN PRN Reason: SEVERE PAIN Stop: 11/14/17 11:11 Senna (Senna -) 1 tab PO BID [facility] Last Admin: 11/13/17 09:25 Dose: Not Given ASSESSMENT AND PLAN: Left Empyema s/p L VATS/pneumolysis/partial decortication - continue antibiotics - pain control - incentive spirometry - monitor chest tube outputs - daily CXR while chest tubes in place - DVT prophylaxis - can monitor on floor
[2017-11-13] MEDS: oxyCODONE HCL 5 MG TABLET PO PRN ×2 (13:10→17:35)
[2017-11-13] MEDS ORDERED: AZITHROMYCIN IVPB 500 MG in DEXTROSE 5%-WATER - 250 ML IVPB SCH (14:00)
[2017-11-13] MEDS ORDERED: FUROSEMIDE 40 MG/4 ML INJECTABLE VIAL IVPUSH ONE (14:27)
--- NOTE | 2017-11-13 14:31 | PN ---
Progress Note (short form) - Note Progress Note: POD#1 s/p vats empyema drainage, partial decortication. Looks well. AF. Drainage minimal. LLL not expanded, consolidated with severe pneumonia. Continue abx as per medical team. OK to switch to PO prior to discharge. Continue CT's to suction until evening. Will remove tubes Saturday/ Saturday if no air-leak. Possible dc Saturday or Saturday if no setbacks. Needs PT. May need oxygen at home. OK to transfer to floor, if possible, can stay on medical service.
--- NOTE | 2017-11-13 17:51 | PATH ---
Cytology Non-Gynecological Report Patient Name: ALEJANDRINA WALDRON [facility]. Rec. #: [id number] /Age/Gender: 1970 (Age: 46) / M Account: [id number] Location: ICU [facility] Taken: 11/12/2017 Received: 11/12/2017 Reported: 11/13/2017 Physicians: Emerson Lemus M.D. Specimen(s) Received BRONCHIAL WASHINGS Clinical History Pleural effusion /empyema Final Diagnosis BRONCHIAL WASHING, LOWER LOBE, LEFT, FOR CYTOLOGY: SATISFACTORY FOR EVALUATION. NO MALIGNANT CELLS IDENTIFIED. ACUTE INFLAMMATORY EXUDATE COMPRISED OF NUMEROUS NEUTROPHILS AND LYMPHOCYTES. Comment: Please see concurrent materials ([id number] and [id number]). Electronically Signed Cecelia Cote M.D. Gross Description Approximately 50 cc of a bloody received fixed in 50% alcohol. Two cytofunnels and one cellblock prepared.
--- NOTE | 2017-11-13 17:53 | PATH ---
Cytology Non-Gynecological Report Patient Name: ALEJANDRINA WALDRON Med. Rec. #: [id number] /Age/Gender: 1970 (Age: 46) / M Account: [id number] Location: ICU SKIN FORMER Taken: 11/11/2017 Received: 11/12/2017 Reported: 11/13/2017 Physicians: Emerson Lemus M.D. Specimen(s) Received PLEURAL FLUID Clinical History Pleural effusion, Empyema Final Diagnosis PLEURAL FLUID FOR CYTOLOGY: SATISFACTORY FOR EVALUATION. NO MALIGNANT CELLS IDENTIFIED. ACUTE INFLAMMATORY EXUDATE COMPRISED OF NUMEROUS NEUTROPHILS AND LYMPHOCYTES. Comment: Please see concurrent materials ([id number] and [id number]). Electronically Signed Cecelia Cote M.D. Gross Description Approximately 50 cc of yellow fluid received fixed in 50% alcohol. Two cytofunnels and one cellblock prepared.
[2017-11-13] MEDS ORDERED: ARTIFICIAL TEARS (POLYVINYL ALCOHOL 1.4%) OPTH DROPS OU PRN (19:17)
[2017-11-13] MEDS ORDERED: ONDANSETRON 4 MG/2 ML VIAL IVPUSH PRN (19:17)
--- NOTE | 2017-11-13 19:49 | PN ---
Teaching Attending Note Name of Resident: Arnaud Wick ATTENDING PHYSICIAN STATEMENT I saw and evaluated the patient. I reviewed the resident's note and discussed the case with the resident. I agree with the resident's findings and plan as documented. SUBJECTIVE: Patient is comfortable with no acute distress, in ICU. No fever or chills. OBJECTIVE: Vital Signs Temperature 98.3 F 11/13/17 17:30 Pulse Rate 83 11/13/17 17:30 Respiratory Rate 20 11/13/17 17:30 Blood Pressure 135/87 11/13/17 17:30 O2 Sat by Pulse Oximetry (%) 96 11/13/17 10:00 CBCD WBC 11.7 K/mm3 (4.0-10.0) H 11/13/17 06:20 RBC 4.14 M/mm3 (4.00-5.60) 11/13/17 06:20 Hgb 13.7 GM/dL (11.7-16.9) 11/13/17 06:20 Hct 40.8 % (35.4-49) 11/13/17 06:20 MCV 98.7 fl (80-96) H 11/13/17 06:20 MCHC 33.6 g/dl (32.0-35.9) 11/13/17 06:20 RDW 13.5 % (11.9-15.9) 11/13/17 06:20 Plt Count 301 K/MM3 (134-434) 11/13/17 06:20 MPV 7.5 fl (7.5-11.1) 11/13/17 06:20 CMP Sodium 135 mmol/L (136-145) L 11/13/17 06:20 Potassium 4.6 mmol/L (3.5-5.1) 11/13/17 06:20 Chloride 98 mmol/L (98-107) 11/13/17 06:20 Carbon Dioxide 27 mmol/L (21-32) 11/13/17 06:20 Anion Gap 10 (8-16) 11/13/17 06:20 BUN 12 mg/dL (7-18) 11/13/17 06:20 Creatinine 0.6 mg/dL (0.7-1.3) L D 11/13/17 06:20 Creat Clearance w eGFR > 60 (>60) 11/12/17 05:05 Random Glucose 115 mg/dL (74-106) H D 11/13/17 06:20 Calcium 8.2 mg/dL (8.5-10.1) L 11/13/17 06:20 Total Bilirubin 1.1 mg/dL (0.2-1.0) H 11/12/17 05:05 AST 26 U/L (15-37) D 11/12/17 05:05 ALT 44 U/L (12-78) 11/12/17 05:05 Alkaline Phosphatase 92 U/L (45-117) 11/12/17 05:05 Total Protein 6.9 g/dl (6.4-8.2) 11/12/17 05:05 Albumin 2.6 g/dl (3.4-5.0) L 11/12/17 05:05 Current Medications Generic Name Dose Route Start Last Admin Trade Name Freq PRN Reason Stop Dose Admin Artificial Tears 1 applic 11/13/17 22:00 Artificial Tears Ointment - OU HS [facility] Artificial Tears 1 drop 11/13/17 19:17 Artificial Tears OU BID PRN DRY EYES Enoxaparin Sodium 40 mg 11/14/17 10:00 Lovenox - SQ DAILY [facility] Azithromycin 500 mg/ Dextrose 250 mls @ 250 mls/hr 11/14/17 14:00 IVPB Q24H [facility] CEFTRIAXONE 1 G/50 ML PREMIX 50 mls @ 100 mls/hr 11/14/17 10:00 Ceftriaxone 1 Gm-D5w Bag IVPB DAILY [facility] Ondansetron HCl 4 mg 11/13/17 19:17 Zofran Injection IVPUSH Q6H PRN NAUSEA AND/OR VOMITING Oxycodone HCl 10 mg 11/13/17 11:12 11/13/17 17:35 Roxicodone - PO 11/14/17 11:11 10 mg Q3H PRN Administration SEVERE PAIN Senna 1 tab 11/13/17 22:00 Senna - PO BID [facility] Home Medications Medication Instructions Recorded NK [No Known Home Medication] 11/09/17 PE: comfortable with no acute distress Chest: positive two left sided chest tube Heart: S1S2 positive abdomen; soft, NT, NR, ND ext: pulses are positive Neuro:AAOx3 Microbiology 11/12/17 15:00 Bronchial Washings - Left Lower Lobe AFB Smear Concentration - Final 11/12/17 15:00 Bronchial Washings - Left Lower Lobe Mycobacterial Culture - Preliminary 11/11/17 13:00 Pleural Fluid Gram Stain - Final 11/11/17 13:00 Pleural Fluid Body Fluid Culture - Final NO GROWTH OF AEROBIC ORGANISMS AFTER 48 HOURS INCUBATION 11/11/17 13:00 Pleural Fluid Anaerobic Culture - Final NO ANAEROBES WERE ISOLATED 11/09/17 12:35 Blood - Peripheral Venous Blood Culture - Preliminary NO GROWTH OBTAINED AFTER 96 HOURS, INCUBATION TO CONTINUE FOR 1 DAYS. 11/09/17 12:35 Blood - Peripheral Venous Blood Culture - Preliminary NO GROWTH OBTAINED AFTER 96 HOURS, INCUBATION TO CONTINUE FOR 1 DAYS. 11/12/17 15:00 Bronchial Washings - Left Lower Lobe SANDRA Preparation - Preliminary 11/12/17 15:00 Bronchial Washings - Left Lower Lobe Fungal Culture - Preliminary 11/10/17 09:15 Sputum - Expectorated Gram Stain - Final 11/10/17 09:15 Sputum - Expectorated Sputum Culture - Final NORMAL RESPIRATORY KOFI 11/11/17 13:00 Pleural Fluid AFB Smear Concentration - Final 11/11/17 13:00 Pleural Fluid Mycobacterial Culture - Preliminary 11/11/17 13:00 Pleural Fluid SANDRA Preparation - Preliminary 11/11/17 13:00 Pleural Fluid Fungal Culture - Preliminary 11/10/17 09:15 Urine - Urine Clean Catch Legionella Antigen - Final 11/10/17 09:15 Urine - Urine Clean Catch Streptococcus pneumoniae Antigen ( M - Final 11/09/17 11:40 Nasopharyngeal Swab Influenza Types A,B Antigen (HERNAN) - Final 11/09/17 11:40 Nasopharyngeal Swab - Final Intake & Output 11/11/17 11/12/17 23:59 23:59 Intake Total 582 3000 Output Total 1850 1907 Balance -1268 1093 Weight ASSESSMENT AND PLAN: 46 y/o gentleman with no significant PMH except smoking , who presented with Left sided CP and cough . He was found to have a large pleural effusion. # Sepsis: with L pleural effusion. on IV antibiotic s/p thoracentesis shows exudative fluid , with cloudy appearance and 2600 WBC. probably parapneumonic--- > empyema . s/p drainage , 1900 cc--->347 cc today of drainage. s/p VATs and pneumolysis by thoracosurgeon, cont chest tube - fluid cx negative so far , cont abx day 5 zithromax and Rocephin IV , will change abx per culture if needed . # Small pericardial effusion : echo moderate pericardial effusion with EJF 60% , AUSTIN negative, TB, HIV negative # s/p sinus tachycardia : back to nsr DVT PX : heparin sq
[2017-11-13] MEDS: MINERAL OIL/PETROLATUM,WHITE 3.5 GM TUBE OU SCH (21:12)
[2017-11-14] MEDS: oxyCODONE HCL 5 MG TABLET PO PRN ×7 (00:06→23:31)
[2017-11-14 06:20] LABS: BASO % 0.7 % (0-2.0); EOS % 5.9 % (0-4.5); HEMATOCRIT 39.6 % (35.4-49); HEMOGLOBIN 13.5 GM/dL (11.7-16.9); LYMPH % 17.4 % (8-40); MCH 33.2 pg (25.7-33.7); MEAN CELL VOLUME 97.9 fl (80-96); MEAN PLT VOLUME 7.5 fl (7.5-11.1); MONO % 10.9 % (3.8-10.2); NEUT % 65.1 % (42.8-82.8); PLATELET COUNT 329 K/MM3 (134-434); RBC 4.05 M/mm3 (4.00-5.60); RDW 13.7 % (11.9-15.9); WHITE BLOOD COUNT 8.9 K/mm3 (4.0-10.0)
[2017-11-14 07:01] LABS: ALBUMIN 2.2 g/dl (3.4-5.0); ALK PHOS 97 U/L (45-117); ANION GAP 6 (8-16); BILIRUBIN,TOTAL 0.6 mg/dL (0.2-1.0); BLOOD UREA NITROGEN 14 mg/dL (7-18); CHLORIDE 98 mmol/L (98-107); CO2 31 mmol/L (21-32); CREATININE 0.7 mg/dL (0.7-1.3); GLUCOSE,RANDOM 92 mg/dL (74-106); SGOT/AST 101 U/L (15-37); SGPT/ALT 90 U/L (12-78); SODIUM 135 mmol/L (136-145); TOT PROT 6.3 g/dl (6.4-8.2)
[2017-11-14] MEDS: ENOXAPARIN NA (PORCINE) 40 MG/0.4 ML DISP.SYRIN SQ SCH (09:12)
[2017-11-14] MEDS: SENNOSIDES 8.6MG TABLET (FP) PO SCH ×2 (09:13→22:00)
[2017-11-14] MEDS ORDERED: CEFTRIAXONE 1 G/50 ML PREMIX 50 ML IVPB SCH (10:00)
--- NOTE | 2017-11-14 11:19 | PN ---
Physical Exam: SUBJECTIVE: Patient seen and examined. No acute events overnight. pt reports some tenderness around the site of his chest tube insertion. He states that his breathing is better than yesterday, and he denies all other complaints. OBJECTIVE: Vital Signs Period Temp Pulse Resp BP Sys/Jimenez Pulse Ox Last 24 Hr 98 F-98.4 F 82-95 18-25 116-157/73-99 95-96 GENERAL: middle-aged male, sitting up, AAOx3, in NAD HEENT: NC, AT NECK: Trachea midline, full range of motion, supple. LUNGS: decreased left-sided breath sounds on bottom half of lung with rales. 2 chest tubes in left side draining blood-colored fluid. HEART: regular rate and rhythm, no murmurs ABDOMEN: Soft, nontender, nondistended, normoactive bowel sounds, no guarding, no rebound, no hepatosplenomegaly, no masses. EXTREMITIES: 1+ b/l LE edema NEUROLOGICAL: Cranial nerves II through XII grossly intact. Normal speech, gait not observed. Laboratory Results - last 24 hr 11/14/17 11/14/17 06:00 06:00 WBC 8.9 RBC 4.05 Hgb 13.5 Hct 39.6 MCV 97.9 H MCH 33.2 MCHC 34.0 RDW 13.7 Plt Count 329 MPV 7.5 Neutrophils % 65.1 Lymphocytes % 17.4 D Monocytes % 10.9 H Eosinophils % 5.9 H D Basophils % 0.7 Sodium 135 L Potassium 4.0 Chloride 98 Carbon Dioxide 31 Anion Gap 6 L BUN 14 Creatinine 0.7 Creat Clearance w eGFR > 60 Random Glucose 92 Calcium 8.0 L Total Bilirubin 0.6 D AST 101 H D ALT 90 H D Alkaline Phosphatase 97 Total Protein 6.3 L Albumin 2.2 L Active Medications Generic Name Dose Route Start Last Admin Trade Name Freq PRN Reason Stop Dose Admin Artificial Tears 1 applic 11/13/17 22:00 11/13/17 21:12 Artificial Tears Ointment - OU Not Given HS [facility] Artificial Tears 1 drop 11/13/17 19:17 Artificial Tears OU BID PRN DRY EYES Enoxaparin Sodium 40 mg 11/14/17 10:00 11/14/17 09:12 Lovenox - SQ 40 mg DAILY [facility] Administration Azithromycin 500 mg/ Dextrose 250 mls @ 250 mls/hr 11/14/17 14:00 IVPB Q24H [facility] CEFTRIAXONE 1 G/50 ML PREMIX 50 mls @ 100 mls/hr 11/14/17 10:00 11/14/17 09: 11 Ceftriaxone 1 Gm-D5w Bag IVPB 100 mls/hr DAILY [facility] Administration Ondansetron HCl 4 mg 11/13/17 19:17 Zofran Injection IVPUSH Q6H PRN NAUSEA AND/OR VOMITING Senna 1 tab 11/13/17 22:00 11/14/17 09:13 Senna - PO 1 tab BID [facility] Administration ASSESSMENT/PLAN: 46M w/ no significant PMH who presented with L sided CP and cough, found to have a large left-sided pleural effusion. #Sepsis with L pleural effusion - s/p thoracentesis, flex bronch, pneumolysis, partial decortication, and effusion drainage - per Dr. Paris, chest tubes set to suction until night, possible tube removal saturday/saturday, and possible D/C on saturday/saturday. - f/u pleural fluid labs and cultures - cont abx, day 6 -leukocytosis resolved, afebrile overnight - pain control with oxycodone - can transfer pt from ICU to floor #Small pericardial effusion -echo: all normal except for moderate pericardial effusion. LVEF = 60% -TB: negative #sinus tachycardia -has tachycardia at baseline -pain and SOB are contributing. -looks euvolemic now #FEN/ppx -no fluids -electrolytes wnl -sodium controlled diet -no GI ppx -lovenox 40 #Dispo -pt to be discharged saturday/saturday if no problems. Might need home O2. -Arnaud Wick MD PGY1 Visit type - Emergency Visit Emergency Visit: Yes ED Registration Date: 11/09/17 Care time: The patient presented to the Emergency Department on the above date and was hospitalized for further evaluation of their emergent condition. - New Patient This patient is new to me today: No - Critical Care Critical Care patient: Yes Total Critical Care Time (in minutes): 36 Critical Care Statement: The care of this patient involved high complexity decision making to prevent further life threatening deterioration of the patient 's condition and/or to evaluate & treat vital organ system(s) failure or risk of failure.
--- NOTE | 2017-11-14 11:59 | PN ---
Teaching Attending Note Name of Resident: Reji Watt ATTENDING PHYSICIAN STATEMENT I saw and evaluated the patient. I reviewed the resident's note and discussed the case with the resident. I agree with the resident's findings and plan as documented. SUBJECTIVE: Patient is feeling better today, with no acute distress. No shortness of breath , no nausea or vomiting. Breathing better , no chest pain. OBJECTIVE: Vital Signs Temperature 98.4 F 11/14/17 10:00 Pulse Rate 90 11/14/17 10:39 Respiratory Rate 20 11/14/17 10:00 Blood Pressure 130/85 11/14/17 10:00 O2 Sat by Pulse Oximetry (%) 95 11/14/17 10:39 CBCD WBC 8.9 K/mm3 (4.0-10.0) 11/14/17 06:00 RBC 4.05 M/mm3 (4.00-5.60) 11/14/17 06:00 Hgb 13.5 GM/dL (11.7-16.9) 11/14/17 06:00 Hct 39.6 % (35.4-49) 11/14/17 06:00 MCV 97.9 fl (80-96) H 11/14/17 06:00 MCHC 34.0 g/dl (32.0-35.9) 11/14/17 06:00 RDW 13.7 % (11.9-15.9) 11/14/17 06:00 Plt Count 329 K/MM3 (134-434) 11/14/17 06:00 MPV 7.5 fl (7.5-11.1) 11/14/17 06:00 CMP Sodium 135 mmol/L (136-145) L 11/14/17 06:00 Potassium 4.0 mmol/L (3.5-5.1) 11/14/17 06:00 Chloride 98 mmol/L (98-107) 11/14/17 06:00 Carbon Dioxide 31 mmol/L (21-32) 11/14/17 06:00 Anion Gap 6 (8-16) L 11/14/17 06:00 BUN 14 mg/dL (7-18) 11/14/17 06:00 Creatinine 0.7 mg/dL (0.7-1.3) 11/14/17 06:00 Creat Clearance w eGFR > 60 (>60) 11/14/17 06:00 Random Glucose 92 mg/dL (74-106) 11/14/17 06:00 Calcium 8.0 mg/dL (8.5-10.1) L 11/14/17 06:00 Total Bilirubin 0.6 mg/dL (0.2-1.0) D 11/14/17 06:00 AST 101 U/L (15-37) H D 11/14/17 06:00 ALT 90 U/L (12-78) H D 11/14/17 06:00 Alkaline Phosphatase 97 U/L (45-117) 11/14/17 06:00 Total Protein 6.3 g/dl (6.4-8.2) L 11/14/17 06:00 Albumin 2.2 g/dl (3.4-5.0) L 11/14/17 06:00 Current Medications Generic Name Dose Route Start Last Admin Trade Name Freq PRN Reason Stop Dose Admin Artificial Tears 1 applic 11/13/17 22:00 11/13/17 21:12 Artificial Tears Ointment - OU Not Given HS [facility] Artificial Tears 1 drop 11/13/17 19:17 Artificial Tears OU BID PRN DRY EYES Enoxaparin Sodium 40 mg 11/14/17 10:00 11/14/17 09:12 Lovenox - SQ 40 mg DAILY [facility] Administration Azithromycin 500 mg/ Dextrose 250 mls @ 250 mls/hr 11/14/17 14:00 IVPB Q24H [facility] CEFTRIAXONE 1 G/50 ML PREMIX 50 mls @ 100 mls/hr 11/14/17 10:00 11/14/17 09: 11 Ceftriaxone 1 Gm-D5w Bag IVPB 100 mls/hr DAILY [facility] Administration Ondansetron HCl 4 mg 11/13/17 19:17 Zofran Injection IVPUSH Q6H PRN NAUSEA AND/OR VOMITING Senna 1 tab 11/13/17 22:00 11/14/17 09:13 Senna - PO 1 tab BID [facility] Administration Home Medications Medication Instructions Recorded NK [No Known Home Medication] 11/09/17 Microbiology 11/12/17 15:00 Bronchial Washings - Left Lower Lobe AFB Smear Concentration - Final 11/12/17 15:00 Bronchial Washings - Left Lower Lobe Mycobacterial Culture - Preliminary 11/11/17 13:00 Pleural Fluid Gram Stain - Final 11/11/17 13:00 Pleural Fluid Body Fluid Culture - Final NO GROWTH OF AEROBIC ORGANISMS AFTER 48 HOURS INCUBATION 11/11/17 13:00 Pleural Fluid Anaerobic Culture - Final NO ANAEROBES WERE ISOLATED 11/09/17 12:35 Blood - Peripheral Venous Blood Culture - Preliminary NO GROWTH OBTAINED AFTER 96 HOURS, INCUBATION TO CONTINUE FOR 1 DAYS. 11/09/17 12:35 Blood - Peripheral Venous Blood Culture - Preliminary NO GROWTH OBTAINED AFTER 96 HOURS, INCUBATION TO CONTINUE FOR 1 DAYS. 11/12/17 15:00 Bronchial Washings - Left Lower Lobe SANDRA Preparation - Preliminary 11/12/17 15:00 Bronchial Washings - Left Lower Lobe Fungal Culture - Preliminary 11/10/17 09:15 Sputum - Expectorated Gram Stain - Final 11/10/17 09:15 Sputum - Expectorated Sputum Culture - Final NORMAL RESPIRATORY KOFI 11/11/17 13:00 Pleural Fluid AFB Smear Concentration - Final 11/11/17 13:00 Pleural Fluid Mycobacterial Culture - Preliminary 11/11/17 13:00 Pleural Fluid SANDRA Preparation - Preliminary 11/11/17 13:00 Pleural Fluid Fungal Culture - Preliminary 11/10/17 09:15 Urine - Urine Clean Catch Legionella Antigen - Final 11/10/17 09:15 Urine - Urine Clean Catch Streptococcus pneumoniae Antigen ( M - Final 11/09/17 11:40 Nasopharyngeal Swab Influenza Types A,B Antigen (HERNAN) - Final 11/09/17 11:40 Nasopharyngeal Swab - Final PE: positive for chest tube on the left side x2 (ant.and post.) rest of PE by the resident. ASSESSMENT AND PLAN: 46 y/o gentleman with no significant PMHx except smoking , who presented with Left sided CP and cough . He was found to have a large pleural effusion. #POD 2 # Left empyema ; s/p left chest tube placement ,Pain well-controlled. s/ p Flexible bronchoscopy, left thoracoscopy, pneumolysis, partial decortication, and drainage of effusion # s/p Sepsis: due to left empyema , on IV antibiotic day #5 (Rocephin and Zithromax) will stop since LFTs are going higher and start the patient on IV levaquin 750mg. #Small pericardial effusion : echo moderate pericardial effusion with EJF 60% , AUSTIN negative, TB, HIV negative # s/p sinus tachycardia : back to NSR DVT PX : heparin sq Possible dc on Saturday AM if tubes removed tomorrow. will assess saturation ambulating--may need home oxygen.
--- NOTE | 2017-11-14 12:20 | PN ---
Progress Note (short form) - Note Progress Note: POD#2 Pt with inc pain with coughing. Vital Signs Period Temp Pulse Resp BP Sys/Jimenez Pulse Ox Last 24 Hr 98 F-98.4 F 82-95 18-25 116-157/73-99 95-96 CT#1-[address]#2-160ml serous GEN: oob to chair, NAD Chest: dressing c/d/i, no air leak with cough(good effort), pt on suction CBC, BMP 12//17 06:00 12//17 06:00 Problem List - Problems (1) Pleural effusion on left Assessment/Plan: POD#2 doing well surgically, IV dilaudid discontinued, oral pain medications ordered cont lovenox SQ primary team, changed antibiotic course, awaiting culture results may be oob/ambulate D/w Dr. Paris. plan is for CT to water seal tonight at 9pm, CXR in the am Code(s): J90 - PLEURAL EFFUSION, NOT ELSEWHERE CLASSIFIED
--- NOTE | 2017-11-14 12:31 | PN ---
Physical Exam: SUBJECTIVE: Patient seen and examined No acute events overnight. Patient's pain is controlled on PO. Patient denies any difficulty breathing or SOB. Denies fevers, chills, chest pain OBJECTIVE: Vital Signs Period Temp Pulse Resp BP Sys/Jimenez Pulse Ox Last 24 Hr 98 F-98.4 F 82-95 18-25 116-157/73-99 95-96 GENERAL: The patient is awake, alert, and fully oriented, in no acute distress. HEAD: Normal with no signs of trauma. EYES: Extraocular movements intact, sclera anicteric, conjunctiva clear. No ptosis. ENT: Oropharynx clear without exudates, moist mucous membranes. NECK: Trachea midline, full range of motion, supple. LUNGS: Decreased breath sounds at L base, Scattered rhonchi throughout left lung , No accessory muscle use. Drained 345 mL from chest tubes yesterday HEART: Regular rate and rhythm, S1, S2 without murmur, rub or gallop. ABDOMEN: Soft, nontender, nondistended, normoactive bowel sounds, no guarding, no rebound, no hepatosplenomegaly, no masses. EXTREMITIES: 2+ pulses, warm, well-perfused, no edema. NEUROLOGICAL: Cranial nerves II through XII grossly intact. Normal speech, gait not observed. PSYCH: Normal mood, normal affect. SKIN: Warm, dry, normal turgor, no rashes or lesions noted Laboratory Results - last 24 hr 11/14/17 11/14/17 06:00 06:00 WBC 8.9 RBC 4.05 Hgb 13.5 Hct 39.6 MCV 97.9 H MCH 33.2 MCHC 34.0 RDW 13.7 Plt Count 329 MPV 7.5 Neutrophils % 65.1 Lymphocytes % 17.4 D Monocytes % 10.9 H Eosinophils % 5.9 H D Basophils % 0.7 Sodium 135 L Potassium 4.0 Chloride 98 Carbon Dioxide 31 Anion Gap 6 L BUN 14 Creatinine 0.7 Creat Clearance w eGFR > 60 Random Glucose 92 Calcium 8.0 L Total Bilirubin 0.6 D AST 101 H D ALT 90 H D Alkaline Phosphatase 97 Total Protein 6.3 L Albumin 2.2 L Active Medications Generic Name Dose Route Start Last Admin Trade Name Freq PRN Reason Stop Dose Admin Artificial Tears 1 applic 11/13/17 22:00 11/13/17 21:12 Artificial Tears Ointment - OU Not Given HS TELLO Artificial Tears 1 drop 11/13/17 19:17 Artificial Tears OU BID PRN DRY EYES Enoxaparin Sodium 40 mg 11/14/17 10:00 11/14/17 09:12 Lovenox - SQ 40 mg DAILY TELLO Administration Levofloxacin 750 mg in 150 mls @ 100 mls/hr 11/15/17 07:00 Levaquin 750 Mg Premixed Ivpb - IVPB AM TELLO Oxycodone HCl 5 mg 11/14/17 12:17 Roxicodone - PO Q6H PRN PAIN LEVEL 1-5 Oxycodone HCl 10 mg 11/14/17 12:18 Roxicodone - PO Q6H PRN PAIN LEVEL 6-10 Senna 1 tab 11/13/17 22:00 11/14/17 09:13 Senna - PO 1 tab BID TELLO Administration ASSESSMENT/PLAN: 46 y.o. M with L empyema status post vats w/ decortication and drainage Respiratory S/p L empyema drainage, VATS procedure Patient with two chest tubes in place Monitor chest tube drainage Get daily x-rays Pain control with oxycodone ID Patient having transaminitis on Ceftriaxone and azithromycin Will switch patient to Levaquin and recheck liver function tests in AM FEN/GI -No IVF -WNL -Sodium controlled diet Ppx -Lovenox for dvt ppx -no GI ppx Disposition: Transfer to [facility] Visit type - Emergency Visit Emergency Visit: Yes ED Registration Date: 11/09/17 Care time: The patient presented to the Emergency Department on the above date and was hospitalized for further evaluation of their emergent condition. - New Patient This patient is new to me today: Yes Date on this admission: 11/14/17 - Critical Care Critical Care patient: Yes Total Critical Care Time (in minutes): 35 Critical Care Statement: The care of this patient involved high complexity decision making to prevent further life threatening deterioration of the patient 's condition and/or to evaluate & treat vital organ system(s) failure or risk of failure.
--- NOTE | 2017-11-14 13:32 | PN ---
Teaching Attending Note Name of Resident: Stone Thapa ATTENDING PHYSICIAN STATEMENT I saw and evaluated the patient. I reviewed the resident's note and discussed the case with the resident. I agree with the resident's findings and plan as documented. SUBJECTIVE: Pt seen and examined in the ICU. Pain controlled with current regimen. Denies shortness of breath. No fevers or chills. OBJECTIVE: Last Vital Signs Temp Pulse Resp BP Pulse Ox 98.4 F 95 H 20 130/82 95 11/14/17 10:00 11/14/17 12:00 11/14/17 12:00 11/14/17 12:00 11/14/17 10:39 Intake & Output 11/11/17 11/12/17 11/13/17 11/14/17 23:59 23:59 23:59 23:59 Intake Total 582 3000 3800 Output Total 1850 1907 3548 2080 Balance -1268 1093 252 -2080 Weight 97.636 kg 97.579 kg Gen: NAD in chair Heart: RRR Lung: decreased breath sounds left base Abd: soft, nontender Ext: no edema CBC, BMP 11/14/17 06:00 11/14/17 06:00 Hepatic Panel Total Bilirubin 0.6 mg/dL (0.2-1.0) D 11/14/17 06:00 Direct Bilirubin 0.6 mg/dL (0.0-0.2) H 11/11/17 06:00 AST 101 U/L (15-37) H D 11/14/17 06:00 ALT 90 U/L (12-78) H D 11/14/17 06:00 Alkaline Phosphatase 97 U/L (45-117) 11/14/17 06:00 Albumin 2.2 g/dl (3.4-5.0) L 11/14/17 06:00 Active Medications Artificial Tears (Artificial Tears Ointment -) 1 applic OU HS [facility] Last Admin: 11/13/17 21:12 Dose: Not Given Artificial Tears (Artificial Tears) 1 drop OU BID PRN PRN Reason: DRY EYES Enoxaparin Sodium (Lovenox -) 40 mg SQ DAILY [facility] Last Admin: 11/14/17 09:12 Dose: 40 mg Levofloxacin (Levaquin 750 Mg Premixed Ivpb -) 750 mg in 150 mls @ 100 mls/hr IVPB AM [facility] Oxycodone HCl (Roxicodone -) 5 mg PO Q6H PRN PRN Reason: PAIN LEVEL 1-5 Oxycodone HCl (Roxicodone -) 10 mg PO Q6H PRN PRN Reason: PAIN LEVEL 6-10 Senna (Senna -) 1 tab PO BID [facility] Last Admin: 11/14/17 09:13 Dose: 1 tab ASSESSMENT AND PLAN: Left Empyema s/p L VATS/pneumolysis/partial decortication Elevated LFTs - continue antibiotics, change to levaquin as LFTs rising - pain control - incentive spirometry - monitor chest tube outputs - daily CXR while chest tubes in place - DVT prophylaxis - can monitor on floor
[2017-11-14] MEDS ORDERED: AZITHROMYCIN IVPB 500 MG in DEXTROSE 5%-WATER - 250 ML IVPB SCH (14:00)
--- NOTE | 2017-11-14 15:27 | PN ---
Progress Note (short form) - Note Progress Note: Thoracic Surgery POD#2 Pain well-controlled. Cough less productive. Has not walked. VSS/AF WBC normal Cx's negative. CT's serosanguineous. CXR: LLL pna, slightly better aeration. Imp/Plan: Tubes to suction until tonight and then water seal. Remove 1-2 tubes tomorrow. F/U cx's, continue abx. Assess saturation ambulating--may need home oxygen. Possible dc on Saturday AM if tubes removed tomorrow.
[2017-11-14] MEDS: LEVOFLOXACIN 750 MG IVPB 750 MG/150 ML BAG IVPB SCH (15:48)
--- NOTE | 2017-11-14 16:43 | PATH ---
Surgical Pathology Report Patient Name: ALEJANDRINA WALDRON [facility]. Rec. #: [id number] /Age/Gender: 1970 (Age: 46) / M Account: [id number] [facility] Taken: 11/12/2017 Received: 11/12/2017 Reported: 11/14/2017 Physicians: Lars Chiu M.D. Specimen(s) Received A: PLEURA FROZEN SECTION--BIOPSY B: PLEURA LEFT Clinical History Left pleural effusion Intraoperative Consult Diagnosis Pleura biopsy, frozen section: Acute and chronic inflammation. No malignancy identified. Niesha Mortensen M.D., 11/12/17 Final Diagnosis A. PLEURA, BIOPSY (FS): BENIGN FIBROMEMBRANOUS TISSUE WITH MARKED ACUTE AND CHRONIC INFLAMMATION AND REACTIVE CHANGES. SCANT BENIGN FIBROADIPOSE TISSUE. B. PLEURA, DECORTICATION: BENIGN FIBROMEMBRANOUS TISSUE WITH MARKED ACUTE AND CHRONIC INFLAMMATION AND REACTIVE CHANGES. SCANT BENIGN FIBROADIPOSE TISSUE. Electronically Signed Cecelia Cote M.D. Gross Description A. Received fresh labeled "pleura for frozen," is a 2.0 x 0.6 x 0.2 cm quiñonez red soft tissue fragment. The specimen is bisected and entirely submitted for frozen section. The frozen section residue is entirely submitted in one cassette. B. Received in formalin labeled "pleura left," is a 4.5 x 4.3 x 1.2 cm aggregate of quiñonez, irregular portions of soft tissue and purulent exudate. [employer] sections are submitted in 4 cassettes. 11/12/201711/12/2017
[2017-11-14] MEDS: MINERAL OIL/PETROLATUM,WHITE 3.5 GM TUBE OU SCH (22:00)
[2017-11-15] MEDS: LEVOFLOXACIN 750 MG IVPB 750 MG/150 ML BAG IVPB SCH (06:01)
[2017-11-15 06:46] LABS: BASO % 0.9 % (0-2.0); EOS % 6.2 % (0-4.5); HEMATOCRIT 42.9 % (35.4-49); HEMOGLOBIN 14.7 GM/dL (11.7-16.9); LYMPH % 17.8 % (8-40); MCH 33.5 pg (25.7-33.7); MCHC 34.2 g/dl (32.0-35.9); MEAN CELL VOLUME 97.8 fl (80-96); MEAN PLT VOLUME 7.2 fl (7.5-11.1); MONO % 10.1 % (3.8-10.2); PLATELET COUNT 414 K/MM3 (134-434); RBC 4.38 M/mm3 (4.00-5.60); RDW 13.7 % (11.9-15.9); WHITE BLOOD COUNT 9.1 K/mm3 (4.0-10.0)
[2017-11-15] MEDS ORDERED: LEVOFLOXACIN 750 MG IVPB 750 MG/150 ML BAG IVPB SCH (07:00)
[2017-11-15 07:05] LABS: ALBUMIN 2.4 g/dl (3.4-5.0); ANION GAP 8 (8-16); BILIRUBIN,TOTAL 0.7 mg/dL (0.2-1.0); BLOOD UREA NITROGEN 10 mg/dL (7-18); CALCIUM 8.3 mg/dL (8.5-10.1); CHLORIDE 97 mmol/L (98-107); CO2 28 mmol/L (21-32); CREATININE 0.6 mg/dL (0.7-1.3); GLUCOSE,RANDOM 95 mg/dL (74-106); POTASSIUM 4.4 mmol/L (3.5-5.1); SGOT/AST 168 U/L (15-37); SGPT/ALT 182 U/L (12-78); SODIUM 133 mmol/L (136-145)
[2017-11-15 07:06] LABS: ALK PHOS 126 U/L (45-117)
--- NOTE | 2017-11-15 07:44 | PN ---
Progress Note (short form) - Note Progress Note: POD #3 Alert. Sitting in chair at bedside. Resting comfortably without complaint. States he feels much better. Denies CP, SOB, MARSHALL, n/v/f/c. Last Vital Signs Temp Pulse Resp BP Pulse Ox 98.0 F 90 20 124/82 94 L 12/22/17 06:00 12/22/17 06:00 11/15/17 06:00 11/15/17 06:00 11/15/17 06:00 TUBE THORACOSTOMY OUTPUT 12/ 12/17 12/ 06:00 18:39 06:00 CxT (anterior) 10 20 10 CxT (posterior) 70 80 60 CBC 12// 06:20 CXR 12/: No ptx. No change in opacification compared to previous film. Gen: nad Cx: dressing c/d/i, CxT ouput as above, no leak LE: SCDs bilat Problem List - Problems (1) Empyema of lung Assessment/Plan: POD #3 s/p Left VATs w/partial decortication, pneumolysis, drainage of emphyema 1 chest tube dc'd on rounds Post-pull CXR ordered f/u BMP OOB (pleurovac on waterseal so ok to ambulate) Diet as tolerated Will monitor remaining CxT ouput and may potentially remove it after 2pm. Above plan discussed with Dr. Paris and agrees Code(s): J86.9 - PYOTHORAX WITHOUT FISTULA
[2017-11-15] MEDS: oxyCODONE HCL 5 MG TABLET PO PRN ×2 (08:28→14:08)
[2017-11-15] MEDS: ENOXAPARIN NA (PORCINE) 40 MG/0.4 ML DISP.SYRIN SQ SCH (09:45)
[2017-11-15] MEDS: SENNOSIDES 8.6MG TABLET (FP) PO SCH (09:45)
--- NOTE | 2017-11-15 12:43 | PN ---
Teaching Attending Note Name of Resident: Arnaud Wick ATTENDING PHYSICIAN STATEMENT I saw and evaluated the patient. I reviewed the resident's note and discussed the case with the resident. I agree with the resident's findings and plan as documented. SUBJECTIVE: Patient is comfortable, with no acute distress. No shortness of breath, no chest pain. saturating well without any oxygen use. OBJECTIVE: Vital Signs Temperature 98.1 F 11/15/17 12:08 Pulse Rate 93 H 11/15/17 12:08 Respiratory Rate 22 11/15/17 12:08 Blood Pressure 127/76 11/15/17 12:08 O2 Sat by Pulse Oximetry (%) 97 11/15/17 10:21 CBCD WBC 9.1 K/mm3 (4.0-10.0) 11/15/17 06:20 RBC 4.38 M/mm3 (4.00-5.60) 11/15/17 06:20 Hgb 14.7 GM/dL (11.7-16.9) 11/15/17 06:20 Hct 42.9 % (35.4-49) 11/15/17 06:20 MCV 97.8 fl (80-96) H 11/15/17 06:20 MCHC 34.2 g/dl (32.0-35.9) 11/15/17 06:20 RDW 13.7 % (11.9-15.9) 11/15/17 06:20 Plt Count 414 K/MM3 (134-434) D 11/15/17 06:20 MPV 7.2 fl (7.5-11.1) L 11/15/17 06:20 CMP Sodium 133 mmol/L (136-145) L 11/15/17 06:20 Potassium 4.4 mmol/L (3.5-5.1) 11/15/17 06:20 Chloride 97 mmol/L (98-107) L 11/15/17 06:20 Carbon Dioxide 28 mmol/L (21-32) 11/15/17 06:20 Anion Gap 8 (8-16) 11/15/17 06:20 BUN 10 mg/dL (7-18) D 11/15/17 06:20 Creatinine 0.6 mg/dL (0.7-1.3) L 11/15/17 06:20 Creat Clearance w eGFR > 60 (>60) 11/15/17 06:20 Random Glucose 95 mg/dL (74-106) 11/15/17 06:20 Calcium 8.3 mg/dL (8.5-10.1) L 11/15/17 06:20 Total Bilirubin 0.7 mg/dL (0.2-1.0) 11/15/17 06:20 AST 168 U/L (15-37) H D 11/15/17 06:20 ALT 182 U/L (12-78) H D 11/15/17 06:20 Alkaline Phosphatase 126 U/L (45-117) H D 11/15/17 06:20 Total Protein 7.0 g/dl (6.4-8.2) 11/15/17 06:20 Albumin 2.4 g/dl (3.4-5.0) L 11/15/17 06:20 Current Medications Generic Name Dose Route Start Last Admin Trade Name Freq PRN Reason Stop Dose Admin Artificial Tears 1 applic 11/13/17 22:00 11/14/17 22:00 Artificial Tears Ointment - OU Not Given HS TELLO Artificial Tears 1 drop 11/13/17 19:17 Artificial Tears OU BID PRN DRY EYES Enoxaparin Sodium 40 mg 11/14/17 10:00 11/15/17 09:45 Lovenox - SQ 40 mg DAILY TELLO Administration Levofloxacin 750 mg in 150 mls @ 100 mls/hr 11/14/17 14:45 11/15/17 06:01 Levaquin 750 Mg Premixed Ivpb - IVPB 100 mls/hr AM TELLO Administration Oxycodone HCl 5 mg 11/14/17 12:17 11/14/17 23:31 Roxicodone - PO 5 mg Q6H PRN Administration PAIN LEVEL 1-5 Oxycodone HCl 10 mg 11/14/17 12:18 11/15/17 08:28 Roxicodone - PO 10 mg Q6H PRN Administration PAIN LEVEL 6-10 Senna 1 tab 11/13/17 22:00 11/15/17 09:45 Senna - PO 1 tab BID TELLO Administration Home Medications Medication Instructions Recorded NK [No Known Home Medication] 11/09/17 PE: chest drainage are removed by the surgeon rest of PE by the resident. ASSESSMENT AND PLAN: 46 y/o gentleman with no significant PMHx except smoking , who presented with Left sided CP and cough . He was found to have a large pleural effusion. #POD 3 # Left empyema ; s/p left chest tube placement ,Pain well-controlled. s/ p Flexible bronchoscopy, left thoracoscopy, pneumolysis, partial decortication, and drainage of effusion. Chest drainage were removed the second one today # s/p Sepsis: due to left empyema , on IV antibiotic day #5 (Rocephin and Zithromax) which was stopped due to having elevated LFTs .Started the patient on IV levaquin 750mg day #2 will continue with po levaquin for 5 more days. #Small pericardial effusion : echo moderate pericardial effusion with EJF 60% , [place] negative, TB, HIV negative # s/p sinus tachycardia : back to NSR DVT PX : heparin sq will discharge the patient home today
--- NOTE | 2017-11-15 13:27 | PN ---
Progress Note (short form) - Note Progress Note: Noted chest tube removed. Overall appears better. CXR: no PTX / no change infiltrate/effusion OBJECTIVE: Intake & Output 11/12/17 11/13/17 11/14/17 11/15/17 23:59 23:59 23:59 23:59 Intake Total 3000 3800 510 460 Output Total 1907 3548 3880 620 Balance 1093 252 -3370 -160 Weight 215 lb 4 oz 215 lb 2 oz Last Vital Signs Temp Pulse Resp BP Pulse Ox 98.1 F 93 H 22 127/76 97 11/15/17 12:08 11/15/17 12:08 11/15/17 12:08 11/15/17 12:08 11/15/17 10:21 Active Medications Artificial Tears (Artificial Tears Ointment -) 1 applic OU HS [facility] Last Admin: 11/14/17 22:00 Dose: Not Given Artificial Tears (Artificial Tears) 1 drop OU BID PRN PRN Reason: DRY EYES Enoxaparin Sodium (Lovenox -) 40 mg SQ DAILY [facility] Last Admin: 11/15/17 09:45 Dose: 40 mg Levofloxacin (Levaquin 750 Mg Premixed Ivpb -) 750 mg in 150 mls @ 100 mls/hr IVPB AM [facility] Last Admin: 11/15/17 06:01 Dose: 100 mls/hr Oxycodone HCl (Roxicodone -) 5 mg PO Q6H PRN PRN Reason: PAIN LEVEL 1-5 Last Admin: 11/14/17 23:31 Dose: 5 mg Oxycodone HCl (Roxicodone -) 10 mg PO Q6H PRN PRN Reason: PAIN LEVEL 6-10 Last Admin: 11/15/17 08:28 Dose: 10 mg Senna (Senna -) 1 tab PO BID [facility] Last Admin: 11/15/17 09:45 Dose: 1 tab Gen: NAD Heart: RRR Lung: decreased breath sounds left base Abd: soft, nontender Ext: no edema Laboratory Results - last 24 hr 11/15/17 11/15/17 06:20 06:20 WBC 9.1 RBC 4.38 Hgb 14.7 Hct 42.9 MCV 97.8 H MCH 33.5 MCHC 34.2 RDW 13.7 Plt Count 414 D MPV 7.2 L Absolute Neuts (auto) 5.9 L Absolute Lymphs (auto) 1.6 L Absolute Monos (auto) 0.9 L Absolute Eos (auto) 0.6 Absolute Basos (auto) 0.1 Neutrophils % 65.0 Lymphocytes % 17.8 Monocytes % 10.1 Eosinophils % 6.2 H Basophils % 0.9 Sodium 133 L Potassium 4.4 Chloride 97 L Carbon Dioxide 28 Anion Gap 8 BUN 10 D Creatinine 0.6 L Creat Clearance w eGFR > 60 Random Glucose 95 Calcium 8.3 L Total Bilirubin 0.7 AST 168 H D ALT 182 H D Alkaline Phosphatase 126 H D Total Protein 7.0 Albumin 2.4 L ASSESSMENT AND PLAN: Left Empyema s/p L VATS/pneumolysis/partial decortication Elevated LFTs - Levaquin - pain control - incentive spirometry - No Pulmonary contraindication for D/C home Dr Alvarez
[2017-11-15 14:08] VITALS: BP 132/90; PULSE 103; TEMP 98.6
--- NOTE | 2017-11-15 15:55 | DS ---
Physical Exam: SUBJECTIVE: Patient seen and examined. No acute events overnight. Pt reports that his breathing has improved. He still has some mild pain around the chest tube insertion site. He is anxious to go to home. OBJECTIVE: Vital Signs Period Temp Pulse Resp BP Sys/Jimenez Pulse Ox Last 24 Hr 97.4 F-98.6 F 88-103 16-25 124-137/76-92 94-97 PHYSICAL EXAM GENERAL: middle-aged male, sitting up, AAOx3, in NAD HEENT: NC, AT NECK: Trachea midline, full range of motion, supple. LUNGS: decreased left-sided breath sounds on bottom third of lung. 1 chest tube in left side draining blood-colored fluid. HEART: regular rate and rhythm, no murmurs ABDOMEN: Soft, nontender, nondistended, normoactive bowel sounds, no guarding, no rebound, no hepatosplenomegaly, no masses. EXTREMITIES: trace b/l LE edema NEUROLOGICAL: Cranial nerves II through XII grossly intact. Normal speech, gait not observed. LABS Laboratory Results - last 24 hr 11/15/17 11/15/17 06:20 06:20 WBC 9.1 RBC 4.38 Hgb 14.7 Hct 42.9 MCV 97.8 H MCH 33.5 MCHC 34.2 RDW 13.7 Plt Count 414 D MPV 7.2 L Absolute Neuts (auto) 5.9 L Absolute Lymphs (auto) 1.6 L Absolute Monos (auto) 0.9 L Absolute Eos (auto) 0.6 Absolute Basos (auto) 0.1 Neutrophils % 65.0 Lymphocytes % 17.8 Monocytes % 10.1 Eosinophils % 6.2 H Basophils % 0.9 Sodium 133 L Potassium 4.4 Chloride 97 L Carbon Dioxide 28 Anion Gap 8 BUN 10 D Creatinine 0.6 L Creat Clearance w eGFR > 60 Random Glucose 95 Calcium 8.3 L Total Bilirubin 0.7 AST 168 H D ALT 182 H D Alkaline Phosphatase 126 H D Total Protein 7.0 Albumin 2.4 L HOSPITAL COURSE: Date of Admission:11/09/17 Date of Discharge: 11/15/17 46M w/ no significant PMH who presented with L sided CP and cough, and was found to have sepsis 2/2 PNA and a large left-sided pleural effusion. Pt was treated with ceftriaxone and azithromycin and underwent chest tube placement in addition to a thoracentesis, flex bronch, pneumolysis, partial decortication, and effusion drainage. Pt's shortness of breath improved, and his pulmonary exams and daily CXRs showed improvement in his clinical condition. Workup for possible causes of his PNA and effusion was negative. Today, pt's chest tubes have been removed, his vitals are stable, and his clinical condition has significantly improved, and he is stable for discharge home to finish his course of antibiotics. Pt was instructed to follow up with his PCP and thoracic surgery. Minutes to complete discharge: 36 Discharge Summary Reason For Visit: PLEURAL EFFUSION ON LT Condition: Stable - Instructions Diet, Activity, Other Instructions: You presented to the hospital with chest pain and cough and were found to have a pneumonia with a left-sided pleural effusion. You were treated with antibiotics, a thoracoscopy, pneumolysis, partial decortication, and drainage of the effusion with chest tubes. You no longer have any signs of infection, and your effusion has decreased significantly. Medications: Take the antibiotic called levaquin for 5 more days. Follow-ups: 1. Follow up with your PCP within one week. If you don't have one, we have referred you to Dr. Horan. 2. Follow up with the cardiothoracic surgeon, Dr. Paris, in one week to remove dawna. If you develop any worsening shortness of breath, chest pain, or any other concerning symptoms, please return to the ED. Referrals: José Horan MD [Staff Physician] - 1 Week Naveen Paris MD [Staff Physician] - 1 Week Disposition: HOME - Home Medications Comprehensive Discharge Medication List: Ambulatory Orders Levofloxacin [Levaquin] 750 mg PO DAILY #5 tab 11/15/17 This patient is new to me today: No Emergency Visit: Yes ED Registration Date: 11/09/17 Care time: The patient presented to the Emergency Department on the above date and was hospitalized for further evaluation of their emergent condition. Critical Care patient: Yes Total Critical Care Time (in minutes): 38 Critical Care Statement: The care of this patient involved high complexity decision making to prevent further life threatening deterioration of the patient 's condition and/or to evaluate & treat vital organ system(s) failure or risk of failure. - Discharge Referral Referred to [facility] Med P.C.: No
== END 2017-11-15 14:25 | disposition home or self-care (01) | DRG 853 ==
LOC: JER 11:02 → JERBED 14:29 → J4W 17:25 → JICU 11-12 18:16 → J2W 11-14 20:03
PROVIDERS: ADMIT Family Medicine; ATTEND Internal Medicine
PROC: 0W9B3ZX Drainage of Left Pleural Cavity, Percutaneous Approach, Diagnostic (ICD-10-PCS; principal; 2017-11-11)
PROC: 0BDP4ZX Extraction of Left Pleura, Percutaneous Endoscopic Approach, Diagnostic (ICD-10-PCS; 2017-11-12)
PROC: 0BJ08ZZ Inspection of Tracheobronchial Tree, Via Natural or Artificial Opening Endoscopic (ICD-10-PCS; 2017-11-12)
PROC: 0W9B30Z Drainage of Left Pleural Cavity with Drainage Device, Percutaneous Approach (ICD-10-PCS; 2017-11-12)
PROC: 0BD Respiratory System, Extraction (ICD-10-PCS; 2017-11-12)
PROC: 0BNJ4ZZ Release Left Lower Lung Lobe, Percutaneous Endoscopic Approach (ICD-10-PCS; 2017-11-12 14:30)
PROC: 0BPQX0Z Removal of Drainage Device from Pleura, External Approach (ICD-10-PCS; 2017-11-15)
DX: A41.9 Sepsis, unspecified organism (principal); J18.9 Pneumonia, unspecified organism; J86.9 Pyothorax without fistula; J90 Pleural effusion, not elsewhere classified; I31.3 Pericardial effusion (noninflammatory); D72.828 Other elevated white blood cell count; R91.1 Solitary pulmonary nodule; M54.5 Low back pain; F17.200 Nicotine dependence, unspecified, uncomplicated; R00.0 Tachycardia, unspecified; R79.89 Other specified abnormal findings of blood chemistry
CPT/HCPCS: 32557; 36415; 71010-TC; 71020-TC; 71250-TC; 76098-TC; 76998-TC; 80048; 80053; 80076; 82042; 82150; 82945; 83036; 83605; 83615; 83735; 84100; 84157; 84443; 84478; 85025; 85610; 85730; 86038; 86140; 86480; 86850; 86900; 86901; 87040; 87070; 87075; 87102; 87116; 87205; 87206; 87210; 87389; 87804; 87899; 88108; 88305-TC; 88331-TC; 89051; 90688; 93005; 93010; 93306-TC; 94010; 94640; 94760; 97116-GP; 97161-GP; 99284-25; C1729; C1769; G0008

== ENCOUNTER 2018-11-20 07:44 | Day surgery (SDC) | payer OTHER ==
[2018-11-10 15:02] VITALS: BMI 32.7
[2018-11-20] MEDS ORDERED: MIDAZOLAM HCL 2 MG/2 ML SINGLE DOSE VIAL ONE (10:57)
[2018-11-20] MEDS ORDERED: BUPIVACAINE LIPOSOME/PF (EXPAREL) 266 MG/20 ML VIAL ONE (10:57)
[2018-11-20] MEDS ORDERED: PROPOFOL 20 ML ONE ×2 (11:32→11:45)
[2018-11-20] MEDS ORDERED: GLYCOPYRROLATE 0.2 MG/1 ML VIAL ONE (13:24)
[2018-11-20] MEDS ORDERED: EPINEPHrine 1:1,000 1 MG/1 ML - 30ML VIAL (INJECTION) ONE (13:29)
[2018-11-20] MEDS ORDERED: KETOROLAC TROMETHAMINE 30 MG/1 ML VIAL ONE (14:45)
[2018-11-20] MEDS ORDERED: oxyCODONE HCL 5 MG TABLET PO PRN ×2 (16:18)
[2018-11-20] MEDS ORDERED: PROMETHAZINE HCL 25 MG/1 ML VIAL IVPUSH PRN (16:18)
[2018-11-20] MEDS ORDERED: ONDANSETRON 4 MG/2 ML VIAL IVPUSH PRN (16:18)
[2018-11-20 17:15] VITALS: TEMP 97.9
[2018-11-20] MEDS ORDERED: ACETAMINOPHEN 325 MG TABLET (FP) PO SCH (18:00)
[2018-11-20 18:05] VITALS: BP 150/85; PULSE 91
--- NOTE | 2018-11-20 18:36 | OP ---
DATE OF OPERATION: 11/20/2018 PREOPERATIVE DIAGNOSIS: Right shoulder massive rotator cuff tear. POSTOPERATIVE DIAGNOSIS: Right shoulder massive rotator cuff tear. PROCEDURE: Right shoulder arthroscopy with rotator cuff repair and subacromial decompression. SURGEON: Lewis Duran MD CENSUS TAKER: Samson Blanton PA-C, whose skillful assistance was necessary for the safe and timely performance of this procedure. Mr. Blanton was able to provide help with positioning, retraction, assist in driving the camera as well as the passing of sutures and insertion of orthopedic fixation hardware. IMPLANT: Arthrex SwiveLock anchors x4. COMPLICATIONS: None. INDICATIONS: This is a pleasant, 47-year-old gentleman with ongoing shoulder pain. An MRI demonstrated a full-thickness, retracted rotator cuff tear. Treatment options including nonoperative versus operative management were reviewed. Operative risks were reviewed including bleeding, infection, neurovascular injury, need for further surgery, postoperative pain and stiffness, retear. We reviewed the medical risks such as heart attack, stroke, DVT, PE, and . I reviewed the possible use of an allograft if the tissue was not compatible with repair. Based on his MRI, there was the suggestion that this may not be repairable. I reviewed postoperative rehabilitation course and extensive need for physical therapy as well as initial mobilization. The patient voiced understanding and elected to proceed. DESCRIPTION OF PROCEDURE: Patient was brought to the operating room after administration of a regional block in the preoperative holding area. The right upper extremity was prepped and draped in the usual sterile fashion, after placing the patient into a beach chair position. Care was taken to pad all of the bony prominences. The arm was examined demonstrating full range of motion and good stability. The patient was given a preoperative dose of antibiotics and the usual timeout procedure was performed. The bony landmarks were now marked out. The portal sites were marked out. The posterior viewing portal was established. The arthroscope was passed in the glenohumeral joint. Examination of the glenoid and humeral surfaces demonstrated moderate articular wear. There is some fraying about the anterior superior labrum, but no james tearing. The biceps was intact and unremarkable. Anterior portals were established. The labrum was probed and found to be stable. Subscapularis was examined and found to be intact. The biceps was poked into the joint and no tendinosis was seen. There was a complete tear of the supraspinatus and infraspinatus. The rotator cuff was retracted to just past the level of the glenoid on the medial side. The rotator cuff was grasped and found to have minimal mobility. At this point, the tissue beneath the rotator cuff and over the glenoid was released. This was done by lifting up with the rotator cuff grasper, making an extra portal laterally and using an elevator as well as electrocautery to dissect along the inferior surface of the rotator cuff. This was carried out both anteriorly to the coracoid as well as posteriorly. Having done this, some additional mobility was gained. The arthroscope was now passed into the subacromial space. Here, subacromial decompression was completed. The greater tuberosity was debrided of a remnant of the rotator cuff. A smooth bony bed was obtained. The subacromial decompression was now carried out and a subacromial release was carried out, dissecting back all of the way to the scapular spine posteriorly and anteriorly to the coracoid as well. The cuff could not be mobilized to the footprint. Tagged sutures were placed in the anterior and posterior leaflets of the tear, which consisted of a split, which was then retracted. Two medial row anchors were now inserted. The sutures were passed while using the tagged sutures to help maintain the cuff in anatomic reduction. The FiberTape sutures were now split, incorporating the tagged sutures. These were then passed into a crossing pattern, reducing the cup onto the footprint and securing it in place. The free sutures from the posterior anchor were now passed into the posterior leaflet. These were then tied, further reducing the rotator cuff. The sutures from the anterior anchor were placed into a [id number] fashion, further closing down the gap between the anterior and posterior leaflets and reducing it down to the footprint. The repair was now passed through range of motion and examined. The fixation was satisfactory. There was no instability on range of motion. The excess fluid was now withdrawn from the joint. The portals were sutured using 3-0 nylon. Sterile drapes were placed. The patient was extubated, transferred to the recovery room in stable condition. Emerson TANNER/[id number]
== END 2018-11-20 17:40 | disposition home or self-care (01) ==
LOC: FASU 07:44
PROVIDERS: ATTEND Orthopaedic Surgery Sports Medicine
PROC: 0RNJ4ZZ Release Right Shoulder Joint, Percutaneous Endoscopic Approach (ICD-10-PCS; 2018-11-20)
PROC: 0LQ14ZZ Repair Right Shoulder Tendon, Percutaneous Endoscopic Approach (ICD-10-PCS; principal; 2018-11-20 12:10)
DX: M75.121 Complete rotator cuff tear or rupture of right shoulder, not specified as traumatic (principal)
CPT/HCPCS: 94760

== ENCOUNTER 2020-08-10 05:09 | Inpatient (IN) | payer OTHER ==
[2020-08-09 12:02] VITALS: BMI 33.6
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
[2020-08-10] MEDS ORDERED: BACITRACIN 15 GM TUBE TOPICAL OINTMENT ONE (11:18)
[2020-08-10] MEDS ORDERED: THROMBIN (BOVINE) 5,000 UNIT VIAL TP ONE ×3 (11:18→13:39)
[2020-08-10] MEDS ORDERED: methylPREDNISolone ACET (DEPO) 80 MG/1 ML VIAL ONE (11:18)
[2020-08-10] MEDS ORDERED: MIDAZOLAM HCL 2 MG/2 ML SINGLE DOSE VIAL ONE ×2 (12:17)
[2020-08-10] MEDS ORDERED: SUCCINYLCHOLINE CHLORIDE 200 MG/10 ML SYRINGE ONE (12:21)
[2020-08-10] MEDS ORDERED: PROPOFOL 20 ML ONE ×15 (12:21→14:39)
[2020-08-10] MEDS ORDERED: ROCURONIUM BROMIDE 50 MG/5 ML SYRINGE ONE (12:21)
[2020-08-10] MEDS ORDERED: ceFAZolin 2 GRAM PREMIX BAG IVPB ONE (12:40)
[2020-08-10] MEDS ORDERED: BACITRACIN 15 GM TUBE TOPICAL OINTMENT TP ONE (13:15)
[2020-08-10] MEDS ORDERED: BACITRACIN 50,000 UNITS VIAL NR ONE (13:36)
[2020-08-10] MEDS ORDERED: HYDROmorphone HCl 2 MG/ML VIAL ONE (15:11)
--- NOTE | 2020-08-10 15:25 | OP ---
Operative Note - Note: Operative Date: 08/10/20 Pre-Operative Diagnosis: C5-6 HNP, stenosis, radiculopathy Operation: Traction tongs placement; anterior cervical discectomy, partial corpectomies, anterior C5-6 fusion, anterior instrumentation C5-6, microdissection Findings: HNP C5-6, stenosis, irritable roots; stable SSEP, EMG, MEP signals Implants: 7 mm interbody device ([place]); Kerri Spine Trinica Select 22 mm p late and 14 mm variable angle screws Post-Operative Diagnosis: Same as Pre-op Surgeon: Lane Crowe Film Vault Supervisor: Saúl Smith Anesthesiologist/DRAW TENDER: Jess Dominique MD Anesthesia: General Specimens Removed: C5-6 HNP Estimated Blood Loss (mls): 25
[2020-08-10] MEDS ORDERED: D5-1/2NS+20 MEQ KCL - 20 MEQ/1,000 ML INFUS.BAG IV SCH (15:30)
[2020-08-10] MEDS ORDERED: ONDANSETRON 4 MG/2 ML VIAL IVPUSH PRN ×2 (15:30→15:41)
[2020-08-10] MEDS ORDERED: oxyCODONE HCL 5 MG TABLET PO PRN (15:30)
[2020-08-10] MEDS ORDERED: LACTATED RINGERS SOLUTION 1,000 ML IV SCH (15:45)
--- NOTE | 2020-08-10 15:48 | PN ---
Progress Note (short form) - Note Progress Note: NEUROSURGERY In PACU AF, VSS, O2 sat 97% Breathing comfortably Sitting up in stretcher PE: CV- RR; Lungs- CTA; Abd- benign; Ext- no sign of DVT CN- intact; Motor- 5/5 b UE/LE; Sensation- intact LT; DTR- 1+ Dressing- soft locally, no crepitus, intact dressing, no bleeding C spine x-rays in AM Pain meds Valium for muscle relaxation Pain meds prn
--- NOTE | 2020-08-10 16:45 | SURG ---
Surgery Pediatrician/Medical Doctor Note Pediatrician/Medical Doctor: Saúl Smith PA-C (Suzy) Date of Service: 08/10/20 Diagnosis: 1. multilevel cervical degenerative disk disease 2. broad-based bilateral disk protrusion at C5-C6 with spinal cord and cervical root impingement with resulting cervical radiculopathy, left greater than right Procedure: Operation: 1. preoperative placement and postoperative removal of cranial tongs for intraoperative traction 2. Anterior cervical microdiskectomy C5-6 3. Microsurgical dissection with operative microscope and microsurgical techniques 4. Anterior cervical partial corpectomy C5 and C6 for decompression of spinal cord and proximal cervical roots bilaterally 5. Anterior cervical interbody fusion 6. Utilization of intervertebral 7 mm lordotic device from [employer] 7. Anterior cervical instrumentation C5-6 with Kerri spine Trinica Select 22-mm titanium plate and 14mm variable angle titanium screws I was present for the entirety of the operative procedure. For further detail, please refer to operative report.
[2020-08-10] MEDS: diazePAM 5 MG TABLET PO SCH ×2 (17:50→22:45)
[2020-08-10] MEDS ORDERED: DEXTROSE 5%-WATER - 50 ML IVPB ONE (20:49)
[2020-08-10] MEDS ORDERED: ceFAZolin SODIUM 1 GM VIAL ONE (20:49)
[2020-08-10] MEDS: CEFAZOLIN 1 GM in DEXTROSE 5%-WATER - 50 ML IVPB SCH (21:23)
[2020-08-10] MEDS: HYDROmorphone HCl 2 MG/ML VIAL IVPB PRN (21:23)
[2020-08-10] MEDS: DOCUSATE SODIUM 100 MG CAPSULE (FP) PO SCH (21:23)
[2020-08-10] MEDS ORDERED: ROSUVASTATIN CA 20 MG TABLET (FP) PO SCH (22:00)
[2020-08-11] MEDS: HYDROmorphone HCl 2 MG/ML VIAL IVPB PRN (02:33)
[2020-08-11] MEDS ORDERED: ceFAZolin SODIUM 1 GM VIAL ONE (05:31)
[2020-08-11] MEDS ORDERED: DEXTROSE 5%-WATER - 50 ML IVPB ONE (05:32)
[2020-08-11] MEDS: DOCUSATE SODIUM 100 MG CAPSULE (FP) PO SCH (05:43)
[2020-08-11] MEDS: CEFAZOLIN 1 GM in DEXTROSE 5%-WATER - 50 ML IVPB SCH (05:43)
--- NOTE | 2020-08-11 07:04 | OP ---
DATE OF OPERATION: 08/10/2020 PREOPERATIVE DIAGNOSES: 1. Multilevel cervical degenerative disk disease. 2. Broad-based bilateral disk protrusion at C5-C6 with spinal cord and cervical root impingement, with resulting cervical radiculopathy, left greater than right. 3. Hypertension. PREOPERATIVE DIAGNOSES: 1. Multilevel cervical degenerative disk disease. 2. Broad-based bilateral disk protrusion at C5-C6 with spinal cord and cervical root impingement, with resulting cervical radiculopathy, left greater than right. 3. Hypertension. ATTENDING SURGEON: Lane Crowe MD SENIOR INSTRUMENTATION ENGINEER: JUANJO Fernandez ANESTHESIA: General endotracheal. ANESTHESIOLOGIST: Jess Dominique MD ESTIMATED BLOOD LOSS: 25 mL. PROCEDURE: 1. Preoperative placement and postoperative removal of cranial traction tongs for intraoperative traction (89031). 2. Anterior cervical microdiskectomy C5-C6. 3. Microsurgical dissection with operative microscope and microsurgical techniques (09942). 4. Anterior cervical partial corpectomy C5 and C6 for decompression of spinal cord and proximal cervical roots bilaterally (33782, 15745). 5. Anterior cervical interbody fusion (63751). 6. Utilization of intervertebral 7-mm lordotic device from [employer] (91436). 7. Anterior cervical instrumentation C5-C6 with Kerri Spine Trinica Select 22-mm titanium plate and 14-mm variable angle titanium screws (14219). FINDINGS: 1. Paraspinal fibrosis. 2. Bilateral disk protrusion C5-C6 with spinal cord impingement. 3. Sensitive cervical roots to the bipolar electrocautery stimulation and mechanical stimulation. INDICATION: The patient is a 49-year-old male with intractable neck pain and cervical radiculopathy. MRI demonstrated multilevel cervical degenerative disk disease. He was found to have bilateral C5-C6 disk herniation with left greater than right C6 radiculopathy. Because of his intractable symptoms and failure of conservative treatment, he is consented for anterior cervical decompression, fusion, and instrumentation. Risks of the surgery include but not limited to bleeding, infection, dural tear with CSF leak, neurologic injury, increased thromboembolic risk, hoarseness, swallowing difficulties, and other risks of general anesthesia. The patient understands indication for the procedure, procedure in detail, risks and benefits, and alternatives for the treatment of his cervical spine condition and wished to proceed. No guarantee is given for a favorable outcome. PROCEDURE IN DETAIL: After the patient was taken to the operating room, he was placed in supine position. After general anesthesia was induced and appropriate lines were placed, the patient's head was secured in a [place]alado horseshoe in a slightly, very mildly extended position. The shoulders were taped down the side and cranial traction tongs were placed with bacitracin ointment. No traction weight was placed until baseline SSEP, EMG and MEP signals were obtained. At this point, anterior cervical region was cleaned with alcohol and prepped with Betadine, and local anesthesia was obtained with needle in place. An approximately 1.1-inch incision was opened over the C5-C6 disk space. Hemostasis was obtained with bipolar electrocautery. Self-retaining retractor was inserted. The platysma muscle was split longitudinally with Metzenbaum scissors. The dissection then proceeded medially to the carotid sheath and laterally to the trachea and esophagus. Moderate dense paraspinal fibrosis was encountered. The dissection was somewhat difficult but achievable with a combination of sharp and blunt dissection. Under gentle retraction of the trachea and esophagus, the prevertebral fascia was skeletonized. Once again there was a moderate degree of paraspinal fibrosis. Spinal needle was inserted into the disk space at C5-C6 and local anesthesia was obtained ascertaining the position at the level of C5-C6. At this point, the needle was withdrawn, self-retaining retractor was inserted after the longus colli muscle was retracted laterally with periosteal elevator. The disk annulus was incised with a number 15-blade, and disk material was removed with a combination of straight and angled curets as well as pituitary rongeur and Kerrison rongeurs. Microscope was moved at this point, which was draped sterilely previously. Illumination and magnification were provided by the microscope and microsurgical techniques were utilized. Partial corpectomy at the bottom of the vertebral body of C5 and top of the vertebral body of C6 was carried out with angled curet, Kerrison rongeur, and pituitary rongeur. The disk space was rather collapsed. The traction weight was first increased to 5 pounds and subsequently to 10 pounds. After partial colpectomy was achieved posteriorly, the posterior osteophytes were burred down with a high-speed pneumatic drill as well as the anterior osteophytes. Underlying the ligamentum flavum was dissected free with angled curet and resected with 2-mm Kerrison rongeurs. Epidural hemostasis was obtained with bipolar electrocautery. Bilateral foraminotomy was carried out with angled curet and Kerrison rongeur. The AP diameter vertebral body was sized to be approximately 16 mm. The height was sized to be approximately 7 mm. A 7-mm lordotic implant from [employer] was packed with 1 mL of Mary Alice, and it was inserted into place and countersunk by approximately 2 mm. At this point, a 22-mm Trinica Select titanium plate from [employer] was secured with fixation pin. Screw holes were made with a drill guide and a handheld drill. Variable angle 14-mm screws were inserted at C5 and C6 bilaterally. There was good bone purchase. The locking mechanism was engaged. At this point, a final lateral cervical spine x-ray was obtained, demonstrating satisfactory positioning of the implants. The wound was once again irrigated with antibiotic irrigation. The surrounding tissue was inspected, and there was no obvious injury to them. Another round of irrigation was given, and layers of Surgicel were laid on top of the plating system as well as the dissection tract. At this point, the platysma muscle was closed primarily with 3-0 Vicryl suture. Subcutaneous fascia was similarly closed. Skin was closed with 4-0 Vicryl running subcuticular suture. Steri-Strips and a sterile occlusive dressing were applied. The patient tolerated the procedure well, was extubated in the operating room. He was moving bilateral upper and lower extremities well in the recovery room. All needle and lap counts were correct. The OR timeout procedure was followed. The patient received 1 dose of 2 g of Ancef and 10 mg dexamethasone prior to the incision. Intraoperative EMG, SSEP and MEP signals remained stable throughout including recurrent laryngeal neural monitoring EMG. LANE CROWE M.D. [id number]
--- NOTE | 2020-08-11 08:21 | PN ---
Progress Note (short form) - Note Progress Note: NEUROSURGERY POD #1 Sore throat L D4-5 numbness better Incisional pain Wants to go home AF, VSS, O2 sat 90's Breathing comfortably Sitting up eating breakfast PE: CV- RR; Lungs- CTA; Abd- benign; Ext- no sign of DVT CN- intact; Motor- 5/5 b UE/LE; Sensation- intact LT; DTR- 1+ Dressing- soft locally, no crepitus, intact dressing, no bleeding, changed C spine x-rays pending PT prior to d/c home Wound care and postop care discussed F/u plan discussed Pain meds prn
[2020-08-11] MEDS: diazePAM 5 MG TABLET PO SCH (08:41)
[2020-08-11] MEDS ORDERED: LISINOPRIL 5 MG TABLET (FP) PO SCH (10:00)
[2020-08-11] MEDS ORDERED: PT OWN MED DRAWER 7, Y5N ONE (10:03)
--- NOTE | 2020-08-11 11:32 | PN ---
Progress Note, Physician Chief Complaint: s/p ACDF post op day one History of Present Illness: general anesthesia, post op day one - Current Medication List Current Medications: Active Medications Diazepam (Valium -) 5 mg PO Q8H [facility] Last Admin: 08/11/20 08:41 Dose: Not Given Documented by: Docusate Sodium (Colace -) 100 mg PO TID [facility] Last Admin: 08/11/20 05:43 Dose: 100 mg Documented by: Hydromorphone HCl (Dilaudid Vial -) 2 mg IVPB Q4H PRN PRN Reason: PAIN LEVEL 7 - 10 Last Admin: 08/11/20 02:33 Dose: 2 mg Documented by: Lisinopril (Prinivil) 5 mg PO DAILY [facility] Last Admin: 08/11/20 10:04 Dose: 5 mg Documented by: Metoprolol Succinate (Toprol Xl -) 50 mg PO DAILY [facility] Last Admin: 08/11/20 10:04 Dose: 50 mg Documented by: Ondansetron HCl (Zofran Injection) 4 mg IVPUSH Q6H PRN PRN Reason: NAUSEA AND/OR VOMITING Oxycodone HCl (Roxicodone -) 5 mg PO Q4H PRN PRN Reason: PAIN LEVEL 4 - 6 Last Admin: 08/11/20 10:05 Dose: 5 mg Documented by: Rosuvastatin Calcium (Crestor -) 40 mg PO HS [facility] Last Admin: 08/10/20 21:23 Dose: 40 mg Documented by: - Objective Vital Signs: Vital Signs Temperature 97.8 F 08/11/20 06:23 Pulse Rate 90 08/11/20 06:23 Respiratory Rate 20 08/11/20 06:23 Blood Pressure 139/67 08/11/20 06:23 O2 Sat by Pulse Oximetry (%) 93 L 08/11/20 06:23 Constitutional: Yes: Well Nourished Cardiovascular: Yes: WNL, Varicosities Gastrointestinal: Yes: WNL Assessment/Plan doing well, pain controlled, tolerating po, no nausea or vomiting, dept of a nesthesia will sign off care at this time
[2020-08-11 12:37] VITALS: BP 141/86; PULSE 95; TEMP 98
--- NOTE | 2020-08-12 12:02 | PATH ---
Surgical Pathology Report Patient Name: ALEJANDRINA WALDRON Med. Rec. #: [id number] /Age/Gender: 1970 (Age: 49) / M Account: [id number] Location: [facility] MED/SURG Taken: 08/10/2020 Received: 08/11/2020 Reported: 08/12/2020 Physicians: Lane Crowe M.D. Specimen(s) Received C5-6 DISC Clinical History Cervical disc disorder Final Diagnosis C5-6 DISC, ANTERIOR CERVICAL DECOMPRESSION, LAMINECTOMY, FUSION: BENIGN INTRAVERTEBRAL DISC TISSUE AND BONE. Electronically Signed Cecelia Cote M.D. Gross Description Received in formalin labeled "C5-6 disc" are multiple fragments of white-quiñonez, fibrocartilaginous tissue and bone measuring 2.5 x 2 x 0.5 cm in aggregate. Entire specimen is submitted after brief decalcification in one cassette. MLSZ/08/11/2020 sanml/08/11/2020
== END 2020-08-11 12:52 | disposition home or self-care (01) | DRG 321 ==
LOC: J2C 05:09 → J8W 17:36
PROVIDERS: ADMIT Neurological Surgery; ATTEND Neurological Surgery
PROC: 0RT30ZZ Resection of Cervical Vertebral Disc, Open Approach (ICD-10-PCS; 2020-08-10)
PROC: 00NW0ZZ Release Cervical Spinal Cord, Open Approach (ICD-10-PCS; 2020-08-10)
PROC: 0RG10A0 Fusion of Cervical Vertebral Joint with Interbody Fusion Device, Anterior Approach, Anterior Column, Open Approach (ICD-10-PCS; principal; 2020-08-10 10:30)
DX: M50.122 Cervical disc disorder at C5-C6 level with radiculopathy (principal); M48.02 Spinal stenosis, cervical region; I10 Essential (primary) hypertension; M25.80 Other specified joint disorders, unspecified joint
CPT/HCPCS: 72050-TC-FY; 88304-TC; 88311-TC; 94760; 97116-GP; 97161-GP

== ENCOUNTER 2021-01-19 11:10 | Day surgery (SDC) | payer OTHER ==
[2021-01-11 12:59] VITALS: BMI 32.8
[2021-01-19] MEDS ORDERED: MIDAZOLAM HCL 2 MG/2 ML SINGLE DOSE VIAL ONE (13:01)
[2021-01-19] MEDS ORDERED: BUPIVACAINE LIPOSOME/PF (EXPAREL) 266 MG/20 ML VIAL ONE (13:01)
[2021-01-19] MEDS ORDERED: PROPOFOL 20 ML ONE ×5 (13:20→19:10)
[2021-01-19] MEDS ORDERED: ceFAZolin SODIUM 1 GM VIAL ONE ×2 (14:06→19:05)
[2021-01-19] MEDS ORDERED: TRANEXAMIC ACID 1000 MG/10 ML VIAL ONE (14:33)
[2021-01-19] MEDS ORDERED: METOPROLOL TARTRATE 5 MG/5 ML VIAL ONE (14:41)
[2021-01-19] MEDS ORDERED: ROCURONIUM BROMIDE 50 MG/5 ML SYRINGE ONE ×3 (14:59→17:34)
[2021-01-19] MEDS ORDERED: SUCCINYLCHOLINE CHLORIDE 200 MG/10 ML SYRINGE ONE (15:00)
[2021-01-19] MEDS ORDERED: GLYCOPYRROLATE 0.2 MG/1 ML VIAL ONE (18:44)
[2021-01-19] MEDS ORDERED: NEOSTIGMINE METHYLSULFATE 0.5 MG/ML - 10 ML MDV ONE (18:44)
[2021-01-19] MEDS ORDERED: KETOROLAC TROMETHAMINE 30 MG/1 ML VIAL ONE (19:26)
[2021-01-19] MEDS ORDERED: PROMETHAZINE HCL 25 MG/1 ML VIAL IVPUSH PRN (19:39)
[2021-01-19] MEDS ORDERED: ACETAMINOPHEN 1000 MG/100 ML VIAL (NON FORMULARY) IVPB ONE (19:39)
[2021-01-19] MEDS ORDERED: oxyCODONE HCL 5 MG TABLET PO PRN (19:39)
[2021-01-19] MEDS ORDERED: ONDANSETRON 4 MG/2 ML VIAL IVPUSH PRN ×2 (19:39→19:53)
[2021-01-19] MEDS ORDERED: LACTATED RINGERS SOLUTION 1,000 ML IV SCH (19:45)
[2021-01-19] MEDS ORDERED: HYDROmorphone HCl 2 MG/ML VIAL ONE (19:51)
[2021-01-19] MEDS ORDERED: PROMETHAZINE HCL 25 MG/1 ML VIAL IVPB PRN (19:53)
[2021-01-19] MEDS ORDERED: DEXAMETHASONE SOD PHOSPHATE 4 MG/1 ML VIAL IVPUSH PRN (19:53)
[2021-01-19] MEDS ORDERED: HYDROmorphone *PCA* 10MG/50ML DISP.SYRIN PCA SCH (20:00)
[2021-01-19] MEDS: HYDROmorphone HCl 2 MG/ML VIAL IVPUSH ONE ×2 (20:18→20:30)
[2021-01-19] MEDS ORDERED: oxyCODONE HCL 5 MG TABLET ONE (20:38)
[2021-01-19] MEDS: oxyCODONE HCL 5 MG TABLET PO PRN (20:40)
[2021-01-19] MEDS ORDERED: ROSUVASTATIN CA 40 MG TABLET PO SCH (22:00)
[2021-01-19] MEDS: oxyCODONE HCL 10 MG SUSTAINED ACTING TABLET PO SCH (22:14)
[2021-01-20] MEDS: BENZOCAINE/MENTH/CETYLPYRD CL 1 EACH LOZENGE MM PRN ×3 (00:01→06:00)
[2021-01-20] MEDS: CEFAZOLIN 1 GM/D5W 1 GM/50 ML BAG IVPB SCH ×2 (01:58→09:00)
[2021-01-20] MEDS: oxyCODONE HCL 5 MG TABLET PO PRN ×2 (02:13→06:37)
[2021-01-20] MEDS: ACETAMINOPHEN 325 MG TABLET (FP) PO SCH ×3 (02:14→08:11)
[2021-01-20] MEDS: HYDROmorphone HCl 2 MG/ML VIAL IVPUSH ONE (08:11)
[2021-01-20] MEDS: oxyCODONE HCL 10 MG SUSTAINED ACTING TABLET PO SCH (09:00)
[2021-01-20] MEDS ORDERED: CHOLECALCIFEROL (VIT D3) 1,000 UNIT (25 MCG) TABLET PO SCH (10:00)
[2021-01-20] MEDS ORDERED: CHOLECALCIFEROL (VIT D3) 5000 UNITS (125 MCG) CAP PO SCH (10:00)
[2021-01-20] MEDS ORDERED: LISINOPRIL 5 MG TABLET PO SCH (10:00)
[2021-01-20 10:09] VITALS: BP 120/62; PULSE 82; TEMP 98.6
== END 2021-01-20 09:15 | disposition home or self-care (01) ==
LOC: FASU 11:10 → FM/S 21:40 → FASU 01-20 09:15
PROVIDERS: ATTEND Orthopaedic Surgery Sports Medicine
PROC: 0RBJ4ZZ Excision of Right Shoulder Joint, Percutaneous Endoscopic Approach (ICD-10-PCS; 2021-01-19)
PROC: 0LS34ZZ Reposition Right Upper Arm Tendon, Percutaneous Endoscopic Approach (ICD-10-PCS; principal; 2021-01-19 14:30)
DX: M75.101 Unspecified rotator cuff tear or rupture of right shoulder, not specified as traumatic (principal); M67.813 Other specified disorders of tendon, right shoulder
CPT/HCPCS: 94760; J0131

== ENCOUNTER 2021-08-17 06:08 | Day surgery (SDC) | payer OTHER ==
[2021-08-11 14:29] VITALS: BMI 33.6
[2021-08-17] MEDS ORDERED: MIDAZOLAM HCL 2 MG/2 ML SINGLE DOSE VIAL ONE ×2 (06:51→07:22)
[2021-08-17] MEDS ORDERED: ROPIVACAINE HCL 0.5% 30ML VIAL ONE ×2 (06:51→07:23)
[2021-08-17] MEDS ORDERED: DEXAMETHASONE SOD PHOSPHATE 10 MG/1 ML VIAL ONE (07:01)
[2021-08-17] MEDS ORDERED: PROPOFOL 20 ML ONE ×2 (07:18)
[2021-08-17] MEDS ORDERED: BUPIVACAINE HCL/PF 2.5 MG/ML - 30 ML VIAL IJ ONE (07:22)
[2021-08-17] MEDS ORDERED: EPINEPHrine 1:1,000 1 MG/1 ML - 30ML VIAL (INJECTION) ONE (07:22)
[2021-08-17] MEDS ORDERED: ONDANSETRON 4 MG/2 ML VIAL IVPUSH PRN (09:52)
[2021-08-17] MEDS ORDERED: oxyCODONE HCL 5 MG TABLET PO PRN (09:52)
[2021-08-17] MEDS ORDERED: LACTATED RINGERS SOLUTION 1,000 ML IV SCH (10:00)
[2021-08-17 10:49] VITALS: TEMP 98
[2021-08-17 11:31] VITALS: BP 110/74; PULSE 85
== END 2021-08-17 11:40 | disposition home or self-care (01) ==
LOC: FASU 06:08
PROVIDERS: ATTEND Orthopaedic Surgery Sports Medicine
PROC: 0LQ14ZZ Repair Right Shoulder Tendon, Percutaneous Endoscopic Approach (ICD-10-PCS; principal; 2021-08-17 08:12)
DX: M75.101 Unspecified rotator cuff tear or rupture of right shoulder, not specified as traumatic (principal); Z98.890 Other specified postprocedural states
CPT/HCPCS: 94760; J1100

== ENCOUNTER 2024-08-25 08:23 | Emergency (ER) | payer OTHER ==
[2024-08-25 08:35] VITALS: RESP 20; TEMP 99.7; BMI 29.6
[2024-08-25] MEDS ORDERED: ACETAMINOPHEN 500 MG TABLET (FP) ONE (08:58)
[2024-08-25] MEDS: ACETAMINOPHEN 325 MG TABLET (FP) PO ONE (08:59)
[2024-08-25 10:16] VITALS: BP 123/85; PULSE 97
== END 2024-08-25 10:26 | disposition home or self-care (01) ==
LOC: FER 08:23
DX: L03.211 Cellulitis of face (principal); R22.0 Localized swelling, mass and lump, head
CPT/HCPCS: 99283-25